=== PATIENT | female | born 1990 | race African-American/Black ===

== ENCOUNTER 2017-12-17 04:21 | Inpatient (IN) | payer MEDICAID ==
[2017-12-17] MEDS ORDERED: OXYTOCIN 10 UNIT/ML VIAL IM ONE ×2 (04:40→05:20)
[2017-12-17] MEDS ORDERED: SODIUM CHLORIDE FLUSH 0.9% 10 ML SYRINGE ONE (04:57)
[2017-12-17] MEDS ORDERED: MAGNESIUM SULFATE IN WATER 20 GM/500 ML IV.SOLN IV ONE (05:00)
[2017-12-17] MEDS ORDERED: LACTATED RINGERS 1,000 ML IV ONE (05:00)
[2017-12-17] MEDS ORDERED: MAGNESIUM SULFATE 2 GRAM 4 GM/100 ML BAG IV ONE (05:06)
[2017-12-17 05:07] LABS: BASOPHILS # (AUTO) 0.1 10^3/uL (0.0-0.1); BASOPHILS % (AUTO) 0.7 %; EOSINOPHILS % (AUTO) 0.1 %; HGB - HEMOGLOBIN 9.9 g/dL (12.0-16.0); LYMPHOCYTES # (AUTO) 1.6 10^3/uL (1.5-3.5); LYMPHOCYTES % (AUTO) 16.6 %; MEAN CORPUSCULAR HEMOGLOBIN 26.4 pg (27.0-31.0); MEAN CORPUSCULAR HGB CONC 32.4 g/dL (32.0-36.0); MEAN CORPUSCULAR VOLUME 81.6 fL (81.0-99.0); MEAN PLATELET VOLUME 9.2 fL (7.9-10.8); MONOCYTES # (AUTO) 0.4 10^3/uL (0.0-1.0); MONOCYTES % (AUTO) 4.3 %; NEUTROPHILS # (AUTO) 7.3 10^3/uL (1.5-6.6); NEUTROPHILS % (AUTO) 78.3 %; PLT - PLATELET COUNT 197 10^3/uL (130-450); RED BLOOD COUNT 3.74 10^6/uL (4.20-5.40); RED CELL DISTRIBUTION WIDTH 13.7 % (12.0-15.0); WHITE BLOOD COUNT 9.4 x10^3/uL (4.8-10.8)
[2017-12-17 05:19] LABS: URIC ACID 5.4 mg/dL (2.6-7.2)
[2017-12-17] MEDS ORDERED: diphenhydrAMINE 25 MG CAPSULE PO PRN (05:38)
[2017-12-17] MEDS ORDERED: ONDANSETRON 4 MG/2 ML VIAL IVP PRN (05:38)
[2017-12-17] MEDS ORDERED: OXYTOCIN/SODIUM CHLORIDE 250 ML IV ONE ×2 (05:38→05:40)
[2017-12-17] MEDS ORDERED: WITCH HAZEL/GLYCERIN 1 EACH MED..PAD TOP PRN (05:40)
[2017-12-17] MEDS ORDERED: oxyCODONE 5 MG TABLET PO PRN (05:40)
[2017-12-17] MEDS ORDERED: HYDROCORTISONE/PRAMOXINE 10 GM PR PRN (05:40)
[2017-12-17] MEDS ORDERED: LACTATED RINGERS 1,000 ML IV SCH (06:00)
[2017-12-17] MEDS ORDERED: miSOPROStol 200 MCG TABLET PO ONE (06:00)
[2017-12-17] MEDS ORDERED: OXYTOCIN 10 UNIT/ML VIAL IV ONE (06:00)
--- NOTE | 2017-12-17 06:27 | DELIVERY NOTE ---
Delivery Note - Labor Labor: positive: Spontaneous - Delivery Method Delivery Method: positive: Spontaneous vaginal delivery - Presentation Presentation: positive: Vertex - Anesthetic Anesthetic Type: - Amniotic Fluid Description Amniotic Fluid Description: positive: Clear - Episiotomy Type Episiotomy Type: positive: None - Laceration Laceration: positive: 1st degree (1 mm no need for repare) - Delivery Outcome Delivery Outcome: positive: Livebirth - [place] sex: positive: Female - Cord Cord: positive: 3 vessels - Placenta Placenta: positive: Intact - Estimated Blood Loss Estimated Blood Loss (in cc): 400 - Delivery Comments (Free Text/Narrative) Delivery Comments (Free Text/Narrative): Pt precipitously delivered unattended in the parking lot of the hospital
--- NOTE | 2017-12-17 07:00 | HISTORY & PHYSICAL EXAMINATION ---
DATE OF SERVICE: 12/17/2017 Physician: El Patton MD PATIENT IDENTIFICATION: The patient is a 27-year-old G5, P4, AB1 female whose last menstrual period was roughly -27 March 2018. She has an EDC of 01 January via a 19- week ultrasound. This makes her 37.6 weeks. CHIEF COMPLAINT: Vaginal delivery. HISTORY OF PRESENT ILLNESS: The patient developed contractions at roughly 1:30 this morning. They were mild in nature. She did progress, they became stronger, and so she came to the hospital [facility] at [facility]. She had spontaneous rupture at roughly 4:15. Upon arriving in the parking lot, she delivered an at roughly 4:25. She has had minimal to no care. She had an ultrasound at 19 weeks, and she states she has had about 3 other visits. She does have a history of having preeclampsia with her last delivery. She now has been noticing mild headaches, but has not had any blood pressure monitoring. The patient denies any spots in front of her eyes at this particular point. Her laboratories are nonexistent. OB HISTORY: First childbirth 05/2010, female, 38 weeks, care at [place]. Second female, delivered in 11/2011 at 36 weeks. She had care once again at [place]. Third was delivered in 02/2016, male, delivered at 37.3 weeks. Infant's course was complicated with IUGR and abruption at time of delivery. She also had care for this one at [place]. She had preeclampsia noted. PAST MEDICAL HISTORY: Positive for seizures, which the last one was 1 year ago. PAST SURGICAL HISTORY: Tonsillectomy and adenoidectomy. CURRENT MEDICATIONS: vitamins. HABITS: The patient smokes 3 cigarettes per day. She states she does also do some heroin. She states that she smoked this 4 days ago, did methamphetamines about the same time; however, that she mainlined this, does do tetrahydrocannabinol periodically. SOCIAL HISTORY: The patient lives with the father and the baby's uncle. She lives in a safe environment at this particular time and food is not an issue. Father of the baby is involved. The patient's 3 previous infants are currently living with the grandmother in [place] and the patient does not have them at this time. FAMILY HISTORY: Negative for breast or ovarian cancer, but is positive for some hypertension. REVIEW OF SYSTEMS: Only positive for nausea. PHYSICAL EXAMINATION VITAL SIGNS: Blood pressures initially were in the 150s over 105s. They have settled down 140s over 105s, pulse has been 80. HEENT: Pupils are equal, round. Extraocular muscles are intact. Thyroid is not palpably enlarged. HEART: Regular rate and rhythm without murmurs. LUNGS: Lung ramirez are clear without rales or wheezes. BACK: No spinal or CVA tenderness noted. ABDOMEN: Shows a firm fundus at U +1. It is tender to palpation. This is appropriate considering she has just delivered. The remainder of the abdomen is soft. VULVA: There is a small 1 mm tear at the posterior vulva. This is minimal in nature and does not deserve a stitch. There are no other lacerations. EXTREMITIES: The left forearm shows multiple scratches on it, roughly 20 in number, these appear to be roughly 1-2 days old. There is no swelling in extremities; however , there is 3+ edema with 3 beats of clonus bilaterally. LABORATORY DATA CBC on admission shows a white count of 9.4, hemoglobin is 9.9, hematocrit is 39.6, platelets are 197. Chemistries: Uric acid is 5.4. AST is 4.2. LDH is 182. Her blood type, Rh as well as the rest of her labs are currently pending. ASSESSMENT AND PLAN 1. A 27-year-old G5, P4, female delivered at 37.6 weeks. 2. Preeclampsia probable. Because of the hypertension, because of the history of seizures also, and the hyperreflexia, it was felt that starting on magnesium sulfate would be the judicious thing to do at this time, will probably run for 24 hours, following which will probably discontinue. We will also engage Tray Setter. TD: 12/17/2017 06:22 YOSSI
[2017-12-17 07:32] LABS: PROTEIN/CREATININE RATIO,URINE 1.5 (<=0.2)
[2017-12-17] MEDS ORDERED: OXYTOCIN/SODIUM CHLORIDE 500 ML IV SCH (08:00)
[2017-12-17] MEDS: ACETAMINOPHEN 500 MG TABLET PO SCH ×3 (08:16→21:25)
[2017-12-17] MEDS: IBUPROFEN 800 MG TABLET PO SCH ×3 (08:16→20:12)
[2017-12-17] MEDS: DOCUSATE SODIUM 100 MG CAPSULE PO SCH ×2 (08:17→21:25)
--- NOTE | 2017-12-17 09:48 | PROVIDER PROGRESS NOTE ---
Subjective - Prog Note Date Prog Note Date: 12/17/17 (SENIOR SITE MANAGER AIR HAMMER STRIPPER) Prog Note Time: 09:35 - Subjective Subjective: SENIOR SITE MANAGER AIR HAMMER STRIPPER: S: 27 YO multiparous female delivered in hospital parking early this AM. Hx of multi-drug use, most recently 4 days ago (see H&P). Patient with elevated bp in 150s/100 range, started on IV Magnesium Sulfate, P/C ration 1.5 as well, other preeclamptic labs unremarkable. Hx of mild seizures of short duration since age 7, denies ever seeing a neurologist, last one 14 months ago. On no meds for seizures, does not know what she was on before episodically. CPS involved. SBAR from Dr. Patton this AM. Patient without complaints, resting in bed, had breakfast this AM. No h/a, visual changes. O: VSS/AF: bp 150/103 at 0745 CV RRR LCTAB ABD SNT, UX Firm, U-6 : Normal lochia Ms/NM: no clonus or hyperrefelxia A/P: # Day of Delivery s/p precipitous delivery in parking lot. # Hx polysubstance abuse: Tox Screen CPS involved # Hx seizure disorder, mild. Last one 14 months ago. Unknown meds for same. Non- complaint Will arrange for F/U visit in clinic in 1 week and outpatient referral. # Preeclampsia 24 hours of IV Magnesium Sulfate Repeat Labs tomorrow AM Objective - Vital Signs/Intake & Output Vital Signs: Vital Signs x48h Temp Pulse Resp BP Pulse Ox 12/17/17 09:00 100 18 148/108 H 100 12/17/17 08:30 96 20 150/104 H 100 12/17/17 08:15 83 18 153/104 H 98 12/17/17 08:00 75 18 149/106 H 99 12/17/17 07:45 83 18 150/103 H 98 12/17/17 07:30 78 18 154/104 H 98 12/17/17 07:15 86 18 155/105 H 100 12/17/17 07:00 88 157/105 H 99 12/17/17 06:45 88 18 157/105 H 98 12/17/17 06:30 36.2 C L 80 20 148/103 H 98 12/17/17 06:15 80 20 151/106 H 12/17/17 06:00 86 20 148/92 H 12/17/17 05:45 95 22 152/92 H 12/17/17 05:30 67 20 151/93 H 12/17/17 05:25 80 20 149/105 H 12/17/17 05:20 77 20 141/91 H 12/17/17 05:15 77 24 141/97 H 12/17/17 05:10 91 20 136/89 H 12/17/17 05:05 83 20 141/90 H 12/17/17 05:00 86 24 141/88 H 12/17/17 04:55 76 24 150/95 H 12/17/17 04:50 36.4 C L 77 24 154/99 H 97 12/17/17 04:45 77 26 H 157/108 H 100 12/17/17 04:40 74 26 H 139/89 H 100 12/17/17 04:35 73 30 H 161/102 H 100 Intake & Output: Intake & Output 12/14/17 12/15/17 12/16/17 12/17/17 23:59 23:59 23:59 23:59 Intake Total 100 Balance 100 - Lab Results Fish Bones: 12/17/17 04:55 Other Labs: Lab Results x24hrs 12/17/17 12/17/17 12/17/17 Range/Units 06:45 04:55 04:55 WBC (4.8-10.8) x10^3/uL RBC (4.20-5.40) 10^6/uL Hgb (12.0-16.0) g/dL Hct (37.0-47.0) % MCV (81.0-99.0) fL MCH (27.0-31.0) pg MCHC (32.0-36.0) g/dL RDW (12.0-15.0) % Plt Count (130-450) 10^3/uL MPV (7.9-10.8) fL Neut # (Auto) (1.5-6.6) 10^3/uL Lymph # (Auto) (1.5-3.5) 10^3/uL [place] # (Auto) (0.0-1.0) 10^3/uL Eos # (Auto) (0.0-0.7) 10^3/uL Baso # (Auto) (0.0-0.1) 10^3/uL Absolute Nucleated RBC x10^3/uL Nucleated RBC % /100WBC Uric Acid 5.4 (2.6-7.2) mg/dL AST 42 (10-42) IU/L Lactate Dehydrogenase (91-225) IU/L Urine Creatinine 129.0 mg/dL Ur Total Protein Timed 193 mg/dL Protein/Creatinin Ratio 1.5 H (<=0.2) Blood Type O POSITIVE Antibody Screen NEGATIVE 12/17/17 12/17/17 Range/Units 04:55 04:55 WBC 9.4 (4.8-10.8) x10^3/uL RBC 3.74 L (4.20-5.40) 10^6/uL Hgb 9.9 L (12.0-16.0) g/dL Hct 30.6 L (37.0-47.0) % MCV 81.6 (81.0-99.0) fL MCH 26.4 L (27.0-31.0) pg MCHC 32.4 (32.0-36.0) g/dL RDW 13.7 (12.0-15.0) % Plt Count 197 (130-450) 10^3/uL MPV 9.2 (7.9-10.8) fL Neut # (Auto) 7.3 H (1.5-6.6) 10^3/uL Lymph # (Auto) 1.6 (1.5-3.5) 10^3/uL [place] # (Auto) 0.4 (0.0-1.0) 10^3/uL Eos # (Auto) 0.0 (0.0-0.7) 10^3/uL Baso # (Auto) 0.1 (0.0-0.1) 10^3/uL Absolute Nucleated RBC 0.01 x10^3/uL Nucleated RBC % 0.1 /100WBC Uric Acid (2.6-7.2) mg/dL AST (10-42) IU/L Lactate Dehydrogenase 182 (91-225) IU/L Urine Creatinine mg/dL Ur Total Protein Timed mg/dL Protein/Creatinin Ratio (<=0.2) Blood Type Antibody Screen
[2017-12-17 10:57] LABS: MUDS CUTOFF CONCENTRATIONS CUTOFF CONC BELOW:
[2017-12-17 11:44] LABS: AMPHETAMINE SCREEN,URINE POSITIVE (NEGATIVE); BENZODIAZEPINES SCREEN, URINE NEGATIVE (NEGATIVE); COCAINE SCREEN URINE NEGATIVE (NEGATIVE); METHADONE SCREEN, URINE NEGATIVE (NEGATIVE); METHAMPHETAMINES SCREEN, URINE NEGATIVE (NEGATIVE); OPIATE SCREEN, URINE NEGATIVE (NEGATIVE); OXYCODONE SCREEN, URINE NEGATIVE (NEGATIVE); PROPOXYPHENE SCREEN, URINE NEGATIVE (NEGATIVE); TRICYCLIC ANTIDEPRESSANT,URINE NEGATIVE (NEGATIVE)
[2017-12-17] MEDS ORDERED: hydrALAZINE INJ 20 MG/ML VIAL IVP PRN (12:23)
[2017-12-17] MEDS: MAGNESIUM SULFATE IN WATER 20 GM/500 ML IV.SOLN IV SCH ×2 (15:47→21:03)
--- NOTE | 2017-12-17 17:58 | PROVIDER PROGRESS NOTE ---
Subjective - Prog Note Date Prog Note Date: 12/17/17 Prog Note Time: 17:56 - Subjective Pt reports feeling: Improved (Pt feels fatgue from Magnesium Sulfate. uterus feels beter. Baby on hold From CPS) Objective - Vital Signs/Intake & Output Reviewed Vital Signs: Yes Vital Signs: Vital Signs x48h Temp Pulse Resp BP Pulse Ox 12/17/17 16:48 83 18 147/100 H 12/17/17 16:30 90 16 143/101 H 12/17/17 15:30 36.9 C 90 18 144/109 H 12/17/17 15:23 79 18 134/93 H 12/17/17 15:00 88 18 141/97 H 12/17/17 14:30 97 16 151/105 H 12/17/17 14:00 87 18 133/87 H 12/17/17 13:30 83 18 140/94 H 12/17/17 12:30 82 18 153/108 H 99 12/17/17 12:00 89 16 152/103 H 99 12/17/17 11:30 84 18 147/105 H 99 12/17/17 11:00 90 18 148/104 H 98 12/17/17 10:30 88 18 144/103 H 99 12/17/17 10:25 75 18 149/106 H 98 12/17/17 10:00 94 18 149/112 H 99 Intake & Output: Intake & Output 12/14/17 12/15/17 12/16/17 12/17/17 23:59 23:59 23:59 23:59 Intake Total 1790.833 Output Total 2300 Balance -509.167 - Objective General Appearance: positive: No acute distress, Alert Reflexes: Knee (R): 2+ (one beat Clonus), Knee (L): 2+ (one beat Clonus) - Lab Results Fish Bones: 12/17/17 04:55 Other Labs: Lab Results x24hrs 12/17/17 12/17/17 12/17/17 Range/Units 08:47 06:45 06:45 WBC (4.8-10.8) x10^3/uL RBC (4.20-5.40) 10^6/uL Hgb (12.0-16.0) g/dL Hct (37.0-47.0) % MCV (81.0-99.0) fL MCH (27.0-31.0) pg MCHC (32.0-36.0) g/dL RDW (12.0-15.0) % Plt Count (130-450) 10^3/uL MPV (7.9-10.8) fL Neut # (Auto) (1.5-6.6) 10^3/uL Lymph # (Auto) (1.5-3.5) 10^3/uL [place] # (Auto) (0.0-1.0) 10^3/uL Eos # (Auto) (0.0-0.7) 10^3/uL Baso # (Auto) (0.0-0.1) 10^3/uL Absolute Nucleated RBC x10^3/uL Nucleated RBC % /100WBC Uric Acid (2.6-7.2) mg/dL AST (10-42) IU/L Lactate Dehydrogenase (91-225) IU/L Urine Creatinine 129.0 mg/dL Ur Total Protein Timed 193 mg/dL Protein/Creatinin Ratio 1.5 H (<=0.2) Urine Opiates Screen NEGATIVE (NEGATIVE) Ur Oxycodone Screen NEGATIVE (NEGATIVE) Urine Methadone Screen NEGATIVE (NEGATIVE) Ur Propoxyphene Screen NEGATIVE (NEGATIVE) Ur Barbiturates Screen NEGATIVE (NEGATIVE) Ur Tricyclics Screen NEGATIVE (NEGATIVE) Ur Phencyclidine Scrn NEGATIVE (NEGATIVE) Ur Amphetamine Screen POSITIVE H (NEGATIVE) U Methamphetamines Scrn NEGATIVE (NEGATIVE) U Benzodiazepines Scrn NEGATIVE (NEGATIVE) Urine Cocaine Screen NEGATIVE (NEGATIVE) U Cannabinoids Screen NEGATIVE (NEGATIVE) Rubella IgG Antibody 34 (POS) IU/mL Blood Type Antibody Screen 12/17/17 12/17/17 12/17/17 Range/Units 04:55 04:55 04:55 WBC 9.4 (4.8-10.8) x10^3/uL RBC 3.74 L (4.20-5.40) 10^6/uL Hgb 9.9 L (12.0-16.0) g/dL Hct 30.6 L (37.0-47.0) % MCV 81.6 (81.0-99.0) fL MCH 26.4 L (27.0-31.0) pg MCHC 32.4 (32.0-36.0) g/dL RDW 13.7 (12.0-15.0) % Plt Count 197 (130-450) 10^3/uL MPV 9.2 (7.9-10.8) fL Neut # (Auto) 7.3 H (1.5-6.6) 10^3/uL Lymph # (Auto) 1.6 (1.5-3.5) 10^3/uL [place] # (Auto) 0.4 (0.0-1.0) 10^3/uL Eos # (Auto) 0.0 (0.0-0.7) 10^3/uL Baso # (Auto) 0.1 (0.0-0.1) 10^3/uL Absolute Nucleated RBC 0.01 x10^3/uL Nucleated RBC % 0.1 /100WBC Uric Acid 5.4 (2.6-7.2) mg/dL AST 42 (10-42) IU/L Lactate Dehydrogenase (91-225) IU/L Urine Creatinine mg/dL Ur Total Protein Timed mg/dL Protein/Creatinin Ratio (<=0.2) Urine Opiates Screen (NEGATIVE) Ur Oxycodone Screen (NEGATIVE) Urine Methadone Screen (NEGATIVE) Ur Propoxyphene Screen (NEGATIVE) Ur Barbiturates Screen (NEGATIVE) Ur Tricyclics Screen (NEGATIVE) Ur Phencyclidine Scrn (NEGATIVE) Ur Amphetamine Screen (NEGATIVE) U Methamphetamines Scrn (NEGATIVE) U Benzodiazepines Scrn (NEGATIVE) Urine Cocaine Screen (NEGATIVE) U Cannabinoids Screen (NEGATIVE) Rubella IgG Antibody IU/mL Blood Type O POSITIVE Antibody Screen NEGATIVE 12/17/17 Range/Units 04:55 WBC (4.8-10.8) x10^3/uL RBC (4.20-5.40) 10^6/uL Hgb (12.0-16.0) g/dL Hct (37.0-47.0) % MCV (81.0-99.0) fL MCH (27.0-31.0) pg MCHC (32.0-36.0) g/dL RDW (12.0-15.0) % Plt Count (130-450) 10^3/uL MPV (7.9-10.8) fL Neut # (Auto) (1.5-6.6) 10^3/uL Lymph # (Auto) (1.5-3.5) 10^3/uL [place] # (Auto) (0.0-1.0) 10^3/uL Eos # (Auto) (0.0-0.7) 10^3/uL Baso # (Auto) (0.0-0.1) 10^3/uL Absolute Nucleated RBC x10^3/uL Nucleated RBC % /100WBC Uric Acid (2.6-7.2) mg/dL AST (10-42) IU/L Lactate Dehydrogenase 182 (91-225) IU/L Urine Creatinine mg/dL Ur Total Protein Timed mg/dL Protein/Creatinin Ratio (<=0.2) Urine Opiates Screen (NEGATIVE) Ur Oxycodone Screen (NEGATIVE) Urine Methadone Screen (NEGATIVE) Ur Propoxyphene Screen (NEGATIVE) Ur Barbiturates Screen (NEGATIVE) Ur Tricyclics Screen (NEGATIVE) Ur Phencyclidine Scrn (NEGATIVE) Ur Amphetamine Screen (NEGATIVE) U Methamphetamines Scrn (NEGATIVE) U Benzodiazepines Scrn (NEGATIVE) Urine Cocaine Screen (NEGATIVE) U Cannabinoids Screen (NEGATIVE) Rubella IgG Antibody IU/mL Blood Type Antibody Screen Assessment/Plan - Problem List (1) (spontaneous vaginal delivery) Impression: Pt ie responding well from post state. Baby on CPS hold (2) Pre-eclampsia Impression: Pt has pre Eclampsia with Protein uria. BP diastolic are elevated above 100 will start Labetolol
[2017-12-17] MEDS ORDERED: LABETALOL 100 MG TABLET PO SCH (19:00)
[2017-12-17] MEDS: LACTATED RINGERS 1,000 ML IV SCH ×2 (21:01→21:03)
[2017-12-17] MEDS: MAGNESIUM SULFATE 2 GRAM 2 GM/50 ML BAG IV SCH ×2 (21:01→21:02)
[2017-12-18] MEDS: MAGNESIUM SULFATE IN WATER 20 GM/500 ML IV.SOLN IV SCH (01:24)
[2017-12-18] MEDS: LACTATED RINGERS 1,000 ML IV SCH ×3 (04:09→23:03)
[2017-12-18 05:30] LABS: BASOPHILS # (AUTO) 0.1 10^3/uL (0.0-0.1); BASOPHILS % (AUTO) 0.7 %; EOSINOPHILS # (AUTO) 0.2 10^3/uL (0.0-0.7); EOSINOPHILS % (AUTO) 2.1 %; HGB - HEMOGLOBIN 9.4 g/dL (12.0-16.0); LYMPHOCYTES # (AUTO) 2.4 10^3/uL (1.5-3.5); LYMPHOCYTES % (AUTO) 30.9 %; MEAN CORPUSCULAR HEMOGLOBIN 27.8 pg (27.0-31.0); MEAN CORPUSCULAR HGB CONC 33.6 g/dL (32.0-36.0); MEAN CORPUSCULAR VOLUME 82.8 fL (81.0-99.0); MEAN PLATELET VOLUME 8.8 fL (7.9-10.8); MONOCYTES # (AUTO) 0.6 10^3/uL (0.0-1.0); MONOCYTES % (AUTO) 7.5 %; NEUTROPHILS # (AUTO) 4.6 10^3/uL (1.5-6.6); NEUTROPHILS % (AUTO) 58.8 %; PLT - PLATELET COUNT 180 10^3/uL (130-450); RED BLOOD COUNT 3.38 10^6/uL (4.20-5.40); RED CELL DISTRIBUTION WIDTH 14.2 % (12.0-15.0); WHITE BLOOD COUNT 7.7 x10^3/uL (4.8-10.8)
[2017-12-18 05:39] LABS: URIC ACID 5.3 mg/dL (2.6-7.2)
[2017-12-18] MEDS: IBUPROFEN 800 MG TABLET PO SCH ×4 (05:58→23:02)
--- NOTE | 2017-12-18 08:09 | PROVIDER PROGRESS NOTE ---
Subjective - Prog Note Date Prog Note Date: 12/18/17 Prog Note Time: 08:06 - Subjective Pt reports feeling: Improved (Pt notes Pain -08/23. states that she has good pain control. bleeding scant. Would like to go out for a breath of fresh air.) Objective - Vital Signs/Intake & Output Reviewed Vital Signs: Yes Vital Signs: Vital Signs x48h Pulse BP 12/18/17 06:30 118/81 H 12/18/17 04:30 64 118/79 12/18/17 04:00 75 138/94 H 12/18/17 03:30 80 127/92 H Intake & Output: Intake & Output 12/15/17 12/16/17 12/17/17 12/18/17 23:59 23:59 23:59 23:59 Intake Total 3040.833 580.833 Output Total 3375 375 Balance -334.167 205.833 - Objective General Appearance: positive: No acute distress, Alert Respiratory: positive: Chest non-tender, No respiratory distress, Breath sounds nml Cardiovascular: positive: Regular rate & rhythm, No murmur, No gallop Abdomen: positive: Non-tender, Nml bowel sounds, No distention, Mass (U-3 cm) Neurologic/Psychiatric: positive: Oriented x3 Reflexes: Knee (R): 1+ (single beat clonus), Knee (L): 1+ (single beat clonus) - Lab Results Fish Bones: 12/18/17 05:18 Other Labs: Lab Results x24hrs 12/18/17 12/18/17 12/18/17 Range/Units 05:18 05:18 05:18 WBC 7.7 (4.8-10.8) x10^3/uL RBC 3.38 L (4.20-5.40) 10^6/uL Hgb 9.4 L (12.0-16.0) g/dL Hct 28.0 L (37.0-47.0) % MCV 82.8 (81.0-99.0) fL MCH 27.8 (27.0-31.0) pg MCHC 33.6 (32.0-36.0) g/dL RDW 14.2 (12.0-15.0) % Plt Count 180 (130-450) 10^3/uL MPV 8.8 (7.9-10.8) fL Neut # (Auto) 4.6 (1.5-6.6) 10^3/uL Lymph # (Auto) 2.4 (1.5-3.5) 10^3/uL [place] # (Auto) 0.6 (0.0-1.0) 10^3/uL Eos # (Auto) 0.2 (0.0-0.7) 10^3/uL Baso # (Auto) 0.1 (0.0-0.1) 10^3/uL Absolute Nucleated RBC 0.01 x10^3/uL Nucleated RBC % 0.1 /100WBC Uric Acid 5.3 (2.6-7.2) mg/dL AST 40 (10-42) IU/L Lactate Dehydrogenase 243 H (91-225) IU/L Urine Opiates Screen (NEGATIVE) Ur Oxycodone Screen (NEGATIVE) Urine Methadone Screen (NEGATIVE) Ur Propoxyphene Screen (NEGATIVE) Ur Barbiturates Screen (NEGATIVE) Ur Tricyclics Screen (NEGATIVE) Ur Phencyclidine Scrn (NEGATIVE) Ur Amphetamine Screen (NEGATIVE) U Methamphetamines Scrn (NEGATIVE) U Benzodiazepines Scrn (NEGATIVE) Urine Cocaine Screen (NEGATIVE) U Cannabinoids Screen (NEGATIVE) Rubella IgG Antibody IU/mL 12/17/17 12/17/17 Range/Units 08:47 06:45 WBC (4.8-10.8) x10^3/uL RBC (4.20-5.40) 10^6/uL Hgb (12.0-16.0) g/dL Hct (37.0-47.0) % MCV (81.0-99.0) fL MCH (27.0-31.0) pg MCHC (32.0-36.0) g/dL RDW (12.0-15.0) % Plt Count (130-450) 10^3/uL MPV (7.9-10.8) fL Neut # (Auto) (1.5-6.6) 10^3/uL Lymph # (Auto) (1.5-3.5) 10^3/uL [place] # (Auto) (0.0-1.0) 10^3/uL Eos # (Auto) (0.0-0.7) 10^3/uL Baso # (Auto) (0.0-0.1) 10^3/uL Absolute Nucleated RBC x10^3/uL Nucleated RBC % /100WBC Uric Acid (2.6-7.2) mg/dL AST (10-42) IU/L Lactate Dehydrogenase (91-225) IU/L Urine Opiates Screen NEGATIVE (NEGATIVE) Ur Oxycodone Screen NEGATIVE (NEGATIVE) Urine Methadone Screen NEGATIVE (NEGATIVE) Ur Propoxyphene Screen NEGATIVE (NEGATIVE) Ur Barbiturates Screen NEGATIVE (NEGATIVE) Ur Tricyclics Screen NEGATIVE (NEGATIVE) Ur Phencyclidine Scrn NEGATIVE (NEGATIVE) Ur Amphetamine Screen POSITIVE H (NEGATIVE) U Methamphetamines Scrn NEGATIVE (NEGATIVE) U Benzodiazepines Scrn NEGATIVE (NEGATIVE) Urine Cocaine Screen NEGATIVE (NEGATIVE) U Cannabinoids Screen NEGATIVE (NEGATIVE) Rubella IgG Antibody 34 (POS) IU/mL Assessment/Plan - Problem List (1) (spontaneous vaginal delivery) Impression: recovering well. (2) Pre-eclampsia Impression: Magnesium stoped this AM. BP down when recumbent. Labetolol working will increase to BID
[2017-12-18] MEDS ORDERED: NICOTINE 7 MG PATCH TOP SCH (09:00)
[2017-12-18] MEDS: LABETALOL 100 MG TABLET PO SCH ×2 (09:14→23:09)
[2017-12-18] MEDS: ACETAMINOPHEN 500 MG TABLET PO SCH ×3 (09:14→23:02)
[2017-12-18] MEDS: DOCUSATE SODIUM 100 MG CAPSULE PO SCH ×2 (09:14→23:09)
[2017-12-18 13:36] LABS: HEPATITIS B SURFACE ANTIGEN NON-REACTIVE (NON-REACTIVE); HEPATITIS C ANTIBODY REACTIVE (NON-REACTIVE)
[2017-12-19] MEDS: DOCUSATE SODIUM 100 MG CAPSULE PO SCH (09:21)
[2017-12-19] MEDS: LABETALOL 100 MG TABLET PO SCH (09:21)
--- NOTE | 2017-12-19 11:26 | Discharge Plan ---
Discharge Plan Disposition: Home, Self Care Prescriptions: Ibuprofen [Motrin] 800 mg PO Q8H PRN #30 tablet NS PRN Reason: Pain Labetalol [Trandate] 100 mg PO BID 30 Days #60 tablet Diet: Regular Activity Restrictions: no sex or heavy lifting for 6 weeks Shower Restrictions: No Driving Restrictions: Yes (no driving x 2 weeks) Weight Bearing: Full Weight Additional Instructions or Follow Up instructions: FOLLOW UP IN [facility] IN 2 WEEKS No Smoking: If you smoke, Please STOP! Call for help. Follow-up with: El Patton MD [Provider Admit Priv/Credential] -
--- NOTE | 2017-12-19 11:54 | DISCHARGE SUMMARY ---
"Discharge Summary Admit Date: 12/17/17 Discharge Date: 12/19/17 Discharging Provider: ELFEGO Condition at Discharge: Good Discharge Facility Name: [facility] - DIAGNOSES Admission Diagnoses: SPONTANEOUS VAGINAL DELIVERY PREECLAMPSIA Discharge Diagnoses with Status of Each Condition: SPONTANEOUS VAGINAL DELIVERY PREECLAMPSIA - HPI History of Present Illness: 27 year-old A1 with an EDC of 01/01/18 based on a 19 week US, making her 37.6 weeks at time of admission, with SROM at approx. 0415 hours subsequently delivered precipitously in [facility] Parking lot at approx. 0425 hours. She has had minimal to no care. She had an ultrasound at 19 weeks, and states she had 3 other OB visits. She has an OB history of preeclampsia with her last delivery. Upon admission noted to have preeclampsia range bp in 150/ 100 range, placed on IV Magnesium Sulfate prophylaxis. P/C ratio 1.5 on admission, bloodwork unremarkable. Social hx notable for polysubstance abuse. Hx of heroin and tetrahydrocannabinol periodcally. States smokes 3 cigarettes per day. Admits to methamphetamine use about 4 days prior to admission. Urine drug screen + for amphetamines on admission. Patient lives with the father and the baby's uncle in a safe environment. - CONSULTS | PROCEDURES Consultations: CPS Procedures: IV MAGNESIUM SULFATE PROPHYLAXIS - HOSPITAL COURSE Hospital Course: The patient was placed on IV Magnesium Sulfate prophylaxis for 24 hours for preeclampsia. Her diastolic bp yuridia to as high as 112 and she was started on oral Labetolol 100 mg bid to which she responded well, with bp in normal range on labetolol. Hepatitis C screen came back +, RNA testing pending at the time of discharge. She is RH positive, Rubella immune. The remainder of her course was unremarkable. CPS is meeting regarding the the status of the baby, who will remain administratively in the hospital after mother is discharged. She is being discharged home on oral motrin and a 30 day supply of Labetolol 100 mg bid with a follow up appointment with delivery physician Pooja in 2 weeks. Discussed contraception with patient prior to discharge to include LARC and she is undecided at this time about contraception. Not interested in sterilization at this time. Will F/U in OB clinic with Dr. Patton in 2 weeks. - ALLERGIES Allergies/Adverse Reactions: Allergies Allergy/AdvReac Type Severity Reaction Status Date / Time No Known Drug Allergies Allergy Verified 12/17/17 21:00 - MEDICATIONS Home Medications: Ambulatory Orders Medication Instructions Recorded Confirmed Ibuprofen [Motrin] 800 mg PO Q8H PRN #30 tablet NS 12/19/17 Labetalol [Trandate] 100 mg PO BID 30 Days #60 tablet 12/19/17 - PHYSICAL EXAM AT DISCHARGE Physical Exam Other/Comments: S: NAD O: VSS/AF ABD SNT, no guarding or rebound Ux firm U-6, NT : normal lochia MS/NM: N/C - LABS Result Diagrams: 12/18/17 05:18 - FOLLOW UP Follow Up: Patient to see Dr. Patton in [facility]. Appointment will be made for the patient. - TIME SPENT Time Spent in Discharge (Minutes): 45"
[2017-12-19 14:37] LABS: HIV AG/AB 4TH GEN NON-REACTIVE (NON-REACTIVE)
[2017-12-19 15:51] VITALS: BP 113/65
[2017-12-20 13:36] LABS: HCV RNA QNT 6.52 Log IU/mL (NOT DETECTED); HCV RNA QUANT RT PCR 3340000 IU/mL (NOT DETECTED)
== END 2017-12-19 14:30 | disposition home or self-care (01) | DRG 776 ==
LOC: WFO 04:21 → FBP 04:22
PROVIDERS: ADMIT Obstetrics & Gynecology; ATTEND Obstetrics & Gynecology
DX: O14.95 Unspecified pre-eclampsia, complicating the puerperium (principal); O70.0 First degree perineal laceration during delivery; O99.325 Drug use complicating the puerperium; F19.10 Other psychoactive substance abuse, uncomplicated; O99.335 Smoking (tobacco) complicating the puerperium; F17.210 Nicotine dependence, cigarettes, uncomplicated; Z60.9 Problem related to social environment, unspecified; Z86.69 Personal history of other diseases of the nervous system and sense organs; Z91.14 Patient's other noncompliance with medication regimen
CPT/HCPCS: 36415; 80306; 82570; 83615; 84156; 84450; 84550; 85025; 86762; 86780; 86803; 86850; 86900; 86901; 87340; 87389; 87491; 87591; 88307

== ENCOUNTER 2018-09-28 02:17 | Outpatient (CLI) | payer MEDICAID ==
[2018-09-28] MEDS ORDERED: SODIUM CHLORIDE FLUSH 0.9% 10 ML SYRINGE ONE (04:27)
[2018-09-28 04:30] LABS: BASOPHILS # (AUTO) 0.1 10^3/uL (0.0-0.1); BASOPHILS % (AUTO) 0.6 %; EOSINOPHILS # (AUTO) 0.2 10^3/uL (0.0-0.7); EOSINOPHILS % (AUTO) 2.1 %; HGB - HEMOGLOBIN 11.1 g/dL (12.0-16.0); LYMPHOCYTES # (AUTO) 1.8 10^3/uL (1.5-3.5); LYMPHOCYTES % (AUTO) 19.8 %; MEAN CORPUSCULAR HEMOGLOBIN 28.8 pg (27.0-31.0); MEAN CORPUSCULAR VOLUME 84.8 fL (81.0-99.0); MONOCYTES # (AUTO) 0.6 10^3/uL (0.0-1.0); MONOCYTES % (AUTO) 6.4 %; NEUTROPHILS # (AUTO) 6.6 10^3/uL (1.5-6.6); NEUTROPHILS % (AUTO) 71.1 %; PLT - PLATELET COUNT 176 10^3/uL (130-450); RED BLOOD COUNT 3.86 10^6/uL (4.20-5.40); RED CELL DISTRIBUTION WIDTH 15.3 % (12.0-15.0); WHITE BLOOD COUNT 9.2 x10^3/uL (4.8-10.8)
[2018-09-28 04:40] LABS: ALBUMIN 2.8 g/dL (3.2-5.5); ALBUMIN/GLOBULIN RATIO 0.8 (1.0-2.2); BILIRUBIN,TOTAL 0.7 mg/dL (0.2-1.0); CALCIUM 8.7 mg/dL (8.5-10.3); CREATININE 0.7 mg/dL (0.4-1.0); TOTAL PROTEIN 6.5 g/dL (6.7-8.2)
[2018-09-28 05:35] LABS: MUDS CUTOFF CONCENTRATIONS CUTOFF CONC BELOW:
[2018-09-28 05:37] LABS: BILIRUBIN,URINE NEGATIVE (NEGATIVE); GLUCOSE, URINE (UA) NEGATIVE (NEGATIVE); KETONES,URINE (UA) NEGATIVE (NEGATIVE); LEUKOCYTE ESTERASE, URINE NEGATIVE (NEGATIVE); NITRITE,URINE NEGATIVE (NEGATIVE); OCCULT BLOOD,URINE MODERATE (NEGATIVE); PROTEIN,URINE 30 mg/dL (NEGATIVE); UROBILINOGEN,URINE 0.2 (NORMAL) E.U./dL (NORMAL)
--- NOTE | 2018-09-28 05:40 | Ultrasound Report ---
Reason: No care. LMP 03/20/2018.Check dates viab Procedure Date: 09/28/2018 Accession Number: [id number] / [id number] Procedure: US - OB Limited CPT Code: FULL RESULT: EXAM: LIMITED OBSTETRICAL ULTRASOUND EXAM DATE: 09/28/2018 04:23 AM. CLINICAL HISTORY: No care. Vaginal bleeding. Check dates and viability. COMPARISON: None. TECHNIQUE: Real-time sonographic evaluation of the fetus performed by the rope cleaner. Multiple medical detail representative static images were saved for review. DATING: EGA 27 weeks 3 days with LISA 12/25/2018 based on LMP. EGA 23 weeks 4 days with LISA 01/21/2019 based on the current ultrasound. GENERAL EVALUATION Syed . Cardiac activity: 150 bpm. movement: Visualized. Presentation: Breech. Placenta: Anterior position. No evidence for previa. Amniotic fluid: Subjectively normal. BIOMETRY Bi-Parietal Diameter (BPD): 5.8 cm, 23 weeks 4 days Head Circumference (HC): 21.7 cm, 23 weeks 5 days Abdominal Circumference (AC): 18.5 cm, 23 weeks 2 days Femur Length (FL): 4.1 cm, 23 weeks 1 day Estimated Weight: 586 g, 6.2 percentile for 27 weeks 3 days. MATERNAL STRUCTURES Uterus: Unremarkable. Cervix: Long and closed. Transabdominal length 3.3 cm. Right ovary/adnexa: Ovary not seen due to bowel gas and gestational age. Left ovary/adnexa: Ovary not seen due to bowel gas and gestational age. Free fluid: None. IMPRESSION: 1. Syed live intrauterine with gestational age 23 weeks 4 days based on current US which is discordant with clinical dates. 2. Otherwise no significant abnormality seen. RADIA
[2018-09-28 05:41] LABS: CLARITY,URINE CLEAR (CLEAR)
[2018-09-28 05:44] LABS: BACTERIA,URINE Rare /HPF (None Seen); MUCUS,URINE Few Strands; SQUAMOUS EPITHELIAL CELL,UR MOD Squamous (<= Few)
[2018-09-28 05:46] LABS: CREATININE,URINE 97.4 mg/dL; PROTEIN/CREATININE RATIO,URINE 0.5 (<=0.2)
[2018-09-28 05:48] LABS: AMPHETAMINE SCREEN,URINE POSITIVE (NEGATIVE); BENZODIAZEPINES SCREEN, URINE NEGATIVE (NEGATIVE); COCAINE SCREEN URINE NEGATIVE (NEGATIVE); METHADONE SCREEN, URINE NEGATIVE (NEGATIVE); METHAMPHETAMINES SCREEN, URINE NEGATIVE (NEGATIVE); OPIATE SCREEN, URINE NEGATIVE (NEGATIVE); OXYCODONE SCREEN, URINE NEGATIVE (NEGATIVE); PROPOXYPHENE SCREEN, URINE NEGATIVE (NEGATIVE); TRICYCLIC ANTIDEPRESSANT,URINE NEGATIVE (NEGATIVE)
[2018-09-28 05:59] VITALS: BP 141/96
[2018-09-29 13:46] LABS: HEPATITIS B SURFACE ANTIGEN NON-REACTIVE (NON-REACTIVE)
[2018-09-29 16:13] LABS: HIV AG/AB 4TH GEN NON-REACTIVE (NON-REACTIVE)
[2018-10-01 16:06] LABS: VARICELLA ZOSTER VIRUS IGM 0.82
[2018-10-01 20:56] LABS: HEPATITIS C VIRAL RNA GENOTYPE 1a
== END 2018-09-28 06:30 | disposition home or self-care (01) ==
LOC: WFO 02:17 → FBP 02:19 → WFO 06:30
PROVIDERS: ATTEND Obstetrics & Gynecology
DX: O46.92 Antepartum hemorrhage, unspecified, second trimester (principal); Z3A.23 23 weeks gestation of pregnancy; O09.32 Supervision of pregnancy with insufficient antenatal care, second trimester
CPT/HCPCS: 36415; 76815; 80053; 80306; 81001; 81003; 82570; 84156; 85025; 86762; 86780; 86787; 86900; 86901; 87086; 87210; 87340; 87389; 87491; 87522; 87591; 87902; 99214

== ENCOUNTER 2018-09-28 10:31 | Outpatient (CLI) | payer MEDICAID ==
--- NOTE | 2018-09-28 17:46 | Ultrasound Report ---
Reason: SUPERVISION OF HIGH RISK , UNSP, SECOND T Procedure Date: 09/28/2018 Accession Number: [id number] / [id number] Procedure: US - OB Detailed Eval CPT Code: FULL RESULT: EXAM: COMPLETE OBSTETRICAL ULTRASOUND. EXAM DATE: 09/28/2018 11:13 AM. CLINICAL HISTORY: anatomic survey. COMPARISON: OB LIMITED 09/28/2018 4:23 AM. TECHNIQUE: Real-time sonographic evaluation of the fetus performed by the service restorer emergency. Multiple sales representative groceries static images were saved for review. DATING: EGA 27 weeks 3 days with LISA 12/25/2018 based on uncertain LMP. EGA 23 weeks 4 days with LISA 01/21/2019 based on ultrasound from earlier today. EGA 24 weeks 2 days with LISA 01/15/2019 based on the current ultrasound. GENERAL EVALUATION Syed . Cardiac activity: 148 bpm. movement: Visualized. Presentation: Cephalic. Placenta: Anterior position. No evidence for previa. Umbilical cord: 3 vessel cord. Central placental cord origin. Nuchal cord is present. Amniotic fluid: Subjectively normal; amniotic fluid index 11.7 cm. MVP 3.45 cm. BIOMETRY Bi-Parietal Diameter (BPD): 6.0 cm, 24 weeks 3 days. Head Circumference (HC): 22.5 cm, 24 weeks 3 days. Abdominal Circumference (AC): 20.1 cm, 24 weeks 5 days. Femur Length (FL): 4.4 cm, 24 weeks 2 days Estimated Weight: 706 g, less than the third percentile for 27 weeks 3 days (using uncertain LMP); using estimated gestational age 23 weeks 4 days from first ultrasound(performed earlier), estimated weight would be at the 87th percentile. ANATOMY The intracranial structures, face/nose/lips, spine, 4 chamber heart and outflow tracts, stomach, abdominal wall and cord insertion, diaphragm, kidneys, bladder, and extremities were visualized and demonstrate no abnormality. Limited visualization of the profile/nasal bone due to positioning. MATERNAL STRUCTURES Uterus: Unremarkable. Cervix: Long and closed. Transabdominal length 4 cm. Right ovary/adnexa: Unremarkable. Left ovary/adnexa: Unremarkable. Free fluid: None. IMPRESSION: 1. Syed live intrauterine with gestational age 23 weeks 4 days based on first ultrasound (performed earlier today), given uncertain dates. 2. Estimated weight is within expected limits for assigned dating based on US performed earlier today. 3. Normal anatomic survey. No anatomic abnormalities are detected at this time. 4. Limited evaluation of the profile and nasal bones. Recommend repeat imaging in 2-3 weeks to reassess and complete survey. 5. Nuchal cord is noted; this can also be reassessed at follow-up. RADIA
== END 2018-09-28 10:32 | disposition home or self-care (01) ==
LOC: DI 10:31
PROVIDERS: ATTEND Nurse Practitioner Obstetrics & Gynecology
DX: O09.92 Supervision of high risk pregnancy, unspecified, second trimester (principal)
CPT/HCPCS: 76811

== ENCOUNTER 2018-09-28 12:35 | Outpatient (CLI) | payer MEDICAID ==
[2018-09-28 12:50] VITALS: BP 136/99
[2018-09-28] MEDS ORDERED: cefTRIAXone 250 MG VIAL IM ONE (12:51)
[2018-09-28] MEDS ORDERED: LIDOCAINE 1% 2 ML VIAL SUBQ ONE (12:51)
[2018-09-28] MEDS ORDERED: AZITHROMYCIN 250 MG TABLET PO STA (12:51)
--- NOTE | 2018-10-01 16:27 | PROVIDER PROGRESS NOTE ---
Subjective - Subjective Subjective: S: came in for postcoital bleeding yesterday. Here today for recheck BP and get anatomy scan. No further bleeding, no pain, feeling well. PMH: Polysubstance abuse PSH: tonsills FH: no defects Meds: none. Allergies: NKDA SH: meth and THC. Recently jailed. Does not have custody of her children. This prfegnancy is desired. OB: Last delivery was 12/17/17. O: NST baseline 150, minimal LTV seen Bliss: neg Gonorrhea: + Chlamydia: neg Hep B: neg Hep C: + antibody screen. Negative confirmation PCR x2. Syphilis: neg HIV: neg ABO: O+ Rh: + Antibody screen: CMP: normal AST, ALT, and Cr P:C ratio: 0.5 Hct: 32, normocytic Plts: 176 Rubella: immune U. tox: +meth, +THC UA: neg Ultrasound: 09/28/18 AUA 23w4d, normal fluid, anterior placenta, CL 3.3. Normal anatomy except profile could not be cleared. Nuchal cord x1. A/P: 28yo at 23w4d with no care with-- 1) gonorrhea treated with rocephin 250mg IM. Chlamydia neg but covered with 1g of azithromycin po. Discussed need for partner to be checked & prophylaxed and abstinence until he has been checked/treated. 2) polysubstance abuse meth and THC: pt is going to outpatient rehab and is excited to be clean. 3) Children in CPS system and out of the home: pt is going to supervised visit. CPS notified of + U.tox. 4) Chronic HTN vs. elevated BP due to amphetamine use. On 09/26/18 at [facility] clinic BP was 146/92. P:C is 0.5. Normal plts, AST, and ALT. Elevated BP in mild range here x2. Plans to see OB at [facility]. Buy BP cuff. Reviewed preecl symptoms. 5) poorly dated, LMP unknown, LISA 01/21/19 based on US today. 6) vax: s/p flu vax in prison. Too early to offer Tdap today 7) Hct 32: start PNV
== END 2018-09-28 13:15 | disposition home or self-care (01) ==
LOC: WFO 12:35 → FBP 12:37 → WFO 13:15
PROVIDERS: ATTEND Obstetrics & Gynecology
DX: O09.32 Supervision of pregnancy with insufficient antenatal care, second trimester (principal); Z3A.23 23 weeks gestation of pregnancy; O46.90 Antepartum hemorrhage, unspecified, unspecified trimester; O98.212 Gonorrhea complicating pregnancy, second trimester; O99.322 Drug use complicating pregnancy, second trimester; F15.10 Other stimulant abuse, uncomplicated; F12.10 Cannabis abuse, uncomplicated; O98.412 Viral hepatitis complicating pregnancy, second trimester; B19.20 Unspecified viral hepatitis C without hepatic coma; R03.0 Elevated blood-pressure reading, without diagnosis of hypertension; O09.72 Supervision of high risk pregnancy due to social problems, second trimester
CPT/HCPCS: 36415; 76811; 76815; 80053; 80306; 81001; 82570; 84156; 85025; 86762; 86780; 86787; 86900; 86901; 87210; 87340; 87389; 87491; 87522; 87591; 87902; 99212; 99214; A9270; 96372

== ENCOUNTER 2018-12-18 19:36 | Emergency (ER) | payer MEDICAID ==
[2018-12-18 19:44] VITALS: BP 187/121
== END 2018-12-18 19:52 | disposition left against medical advice (07) ==
LOC: ED 19:36
DX: Z53.21 Procedure and treatment not carried out due to patient leaving prior to being seen by health care provider (principal)

== ENCOUNTER 2018-12-18 19:50 | Inpatient (IN) | payer MEDICAID ==
[2018-12-18] MEDS ORDERED: NIFEdipine 10 MG CAPSULE PO STA (20:00)
[2018-12-18] MEDS ORDERED: SODIUM CHLORIDE FLUSH 0.9% 10 ML SYRINGE ONE (20:13)
[2018-12-18] MEDS ORDERED: LABETALOL 5 MG/1 ML 20 ML MDV ONE (20:13)
[2018-12-18] MEDS ORDERED: fentaNYL 100 MCG/2 ML VIAL IVP PRN (20:23)
[2018-12-18] MEDS ORDERED: METOCLOPRAMIDE 10 MG/2 ML VIAL IVP PRN (20:23)
[2018-12-18] MEDS ORDERED: ONDANSETRON 4 MG/2 ML VIAL IVP PRN (20:23)
[2018-12-18] MEDS ORDERED: NIFEdipine 10 MG CAPSULE PO ONE (20:23)
[2018-12-18] MEDS: MAGNESIUM SULFATE 2 GRAM 2 GM/50 ML BAG IV SCH ×2 (20:35→20:36)
[2018-12-18] MEDS ORDERED: MAGNESIUM SULFATE IN WATER 20 GM/500 ML IV.SOLN IV SCH (20:40)
[2018-12-18] MEDS ORDERED: hydrALAZINE INJ 20 MG/ML VIAL IVP ONE ×3 (20:45→22:00)
[2018-12-18 20:48] LABS: BASOPHILS # (AUTO) 0.1 10^3/uL (0.0-0.1); BASOPHILS % (AUTO) 0.7 %; EOSINOPHILS # (AUTO) 0.1 10^3/uL (0.0-0.7); EOSINOPHILS % (AUTO) 0.9 %; HGB - HEMOGLOBIN 10.1 g/dL (12.0-16.0); LYMPHOCYTES # (AUTO) 2.3 10^3/uL (1.5-3.5); LYMPHOCYTES % (AUTO) 22.4 %; MEAN CORPUSCULAR HEMOGLOBIN 25.1 pg (27.0-31.0); MEAN CORPUSCULAR HGB CONC 32.7 g/dL (32.0-36.0); MEAN CORPUSCULAR VOLUME 76.7 fL (81.0-99.0); MEAN PLATELET VOLUME 9.9 fL (7.9-10.8); MONOCYTES # (AUTO) 0.6 10^3/uL (0.0-1.0); MONOCYTES % (AUTO) 5.7 %; NEUTROPHILS # (AUTO) 7.1 10^3/uL (1.5-6.6); NEUTROPHILS % (AUTO) 70.3 %; PLT - PLATELET COUNT 156 10^3/uL (130-450); RED BLOOD COUNT 4.03 10^6/uL (4.20-5.40); RED CELL DISTRIBUTION WIDTH 16.5 % (12.0-15.0); WHITE BLOOD COUNT 10.1 x10^3/uL (4.8-10.8)
[2018-12-18] MEDS: hydrALAZINE INJ 20 MG/ML VIAL IVP PRN ×3 (20:53→22:13)
[2018-12-18 21:00] LABS: CREATININE 1.6 mg/dL (0.4-1.0)
[2018-12-18] MEDS ORDERED: LABETALOL 100 MG TABLET PO SCH (21:00)
[2018-12-18] MEDS ORDERED: OXYTOCIN/SODIUM CHLORIDE 500 ML IV SCH (21:00)
[2018-12-18] MEDS ORDERED: MAGNESIUM SULFATE 2 GRAM 2 GM/50 ML BAG IV SCH (21:00)
[2018-12-18] MEDS ORDERED: LACTATED RINGERS 1,000 ML IV SCH (21:00)
[2018-12-18] MEDS ORDERED: ACETAMINOPHEN 325 MG TABLET PO SCH (21:00)
[2018-12-18] MEDS ORDERED: hydrALAZINE INJ 20 MG/ML VIAL IVP PRN (21:39)
[2018-12-18] MEDS ORDERED: SODIUM CHLORIDE FLUSH 0.9% 10 ML SYRINGE IVP PRN (22:19)
[2018-12-18] MEDS ORDERED: AMPICILLIN 2 GM in SODIUM CHLORIDE 0.9% MINIBAG 100 ML IV ONE (22:19)
[2018-12-18] MEDS ORDERED: AZITHROMYCIN 250 MG TABLET PO STA (22:24)
[2018-12-18] MEDS ORDERED: cefTRIAXone 250 MG VIAL IM ONE (22:25)
[2018-12-18] MEDS ORDERED: LIDOCAINE 1% 2 ML VIAL MC ONE (22:25)
[2018-12-18] MEDS ORDERED: LABETALOL 5 MG/1 ML 20 ML MDV IVP PRN (22:29)
[2018-12-18 22:31] LABS: MUDS CUTOFF CONCENTRATIONS CUTOFF CONC BELOW:
[2018-12-18 22:43] LABS: BILIRUBIN,URINE NEGATIVE (NEGATIVE); GLUCOSE, URINE (UA) NEGATIVE (NEGATIVE); KETONES,URINE (UA) NEGATIVE (NEGATIVE); LEUKOCYTE ESTERASE, URINE NEGATIVE (NEGATIVE); NITRITE,URINE NEGATIVE (NEGATIVE); OCCULT BLOOD,URINE SMALL (NEGATIVE); PROTEIN,URINE >=300 mg/dL (NEGATIVE); UROBILINOGEN,URINE 0.2 (NORMAL) E.U./dL (NORMAL)
[2018-12-18 22:47] LABS: AMPHETAMINE SCREEN,URINE POSITIVE (NEGATIVE); BENZODIAZEPINES SCREEN, URINE NEGATIVE (NEGATIVE); COCAINE SCREEN URINE NEGATIVE (NEGATIVE); METHADONE SCREEN, URINE NEGATIVE (NEGATIVE); METHAMPHETAMINES SCREEN, URINE POSITIVE (NEGATIVE); OPIATE SCREEN, URINE POSITIVE (NEGATIVE); OXYCODONE SCREEN, URINE NEGATIVE (NEGATIVE); PROPOXYPHENE SCREEN, URINE NEGATIVE (NEGATIVE); TRICYCLIC ANTIDEPRESSANT,URINE NEGATIVE (NEGATIVE)
[2018-12-18 22:58] LABS: CLARITY,URINE HAZY (CLEAR)
[2018-12-18 22:59] LABS: AMORPHOUS SEDIMENT,UR Few /LPF; BACTERIA,URINE Few /HPF (None Seen); CASTS, URINE 11-25 Hyaline Casts /LPF; SQUAMOUS EPITHELIAL CELL,UR MOD Squamous (<= Few)
[2018-12-18] MEDS ORDERED: miSOPROStol 100 MCG TABLET PO SCH (23:00)
[2018-12-18] MEDS: SODIUM CHLORIDE FLUSH 0.9% 10 ML SYRINGE IVP SCH (23:10)
[2018-12-18] MEDS: SODIUM CHLORIDE FLUSH 0.9% 10 ML SYRINGE IVP PRN ×2 (23:10→23:11)
[2018-12-18 23:21] LABS: CREATININE,URINE 86.5 mg/dL; PROTEIN/CREATININE RATIO,URINE 8.3 (<=0.2)
--- NOTE | 2018-12-18 23:49 | HISTORY & PHYSICAL EXAMINATION ---
Admit History - Visit Reason Visit Reason: Other (CATHY/Pre-eclampsia with severe features) - : 5 Parity: 4 Premature: 1 Care: positive: Other (Had one visit with [facility] and was seen at [facility] ED, then entered incarceration and rehab facility. Early PNL drawn and anatmy/dating scan at 23 wga completed) Risk/History: positive: No care, labor <37 weeks, induced HTN, High risk, Other (Hx of precipitous delivery in parking lot, delivery, preeclampsia, and polysubstance abuse. Scant care) Complications This : positive: Maternal drug use, Pre- eclampsia, Other (Hepatitis C with high viral load, no treatment or monitoring. GCCT with treatment, but no ALESSIA and partner not treated. Scant care. CHTN with baseline proteinuria 0.5 by P:C. Now with preeclampsia with severe features) Smoking Status: Current every day smoker - Mother's Labs Mother's Blood Type: positive: O Mother's RH: positive: Positive GBS: positive: Other (unknown) Rubella Status: positive: Immune - Other Maternal History Other Maternal History: Ms. Fabian is a 28 yo at 36w0d by 23 weeks us here with preeclampsia with severe features. Ms. Fabian presented triage with severe headache worsening over 4 days with vision loss over the last day. Lower extremities have been swelling to the point of exquisite tenderness. Blood pressures in the 200s/120s on arrival. care has been scant. She had one PNC visit with [facility] in September. She had baseline P:C of 0.5 and hypertensive blood pressures. LMP was unclear and she was dated by an 23 week us. She did not return for further care. She was seen at [facility] ER shortly after and PNL drawn at that time. Incarcerated shortly after and did not receive any care while imprisoned. Reports havig used methamphetamines when previously jailed. Reports being clean at present. ID: She was also found to be Hep C positive with a high viral load. No follow-up or further testing. Records show positive Hep C in 2018. She was also positive for gonorrhea. Treated for GCCT at [facility] ER. Her partner was not treated and she not have a ALESSIA. Review of records show CT infection in 12/29. GBS has not been collected. Collected at intake. PSA: Hx of methamphetamine, THC, and heroin use. Incarcerated this spring. Reports attending rehab services. Utox positive for meth/amphetamines/opioids at admit. Short interpregnancy interval: prior precipitous delivery in hospital parking lot 12/17/17. Dating: Unknown LMP due to short interpregnancy interval US 09/28/18 at 24w2d--> LISA 01/15/19--> 36w0d US performed earlier n 09/28/18--> LISA 01/21/19--> 35w1d O pos/ Rub imm/ HIV neg/ RPR NR/ HepBsAg neg/ GC pos/ CT neg/Hep C positive Viral load [id number] Genotype 1A Log 6.6 Glucola not done GBS not done TDaP not done Meds/Allgy - Home Medications Home Medications: Ambulatory Orders Medication Instructions Recorded Confirmed No Known Home Medications 12/18/18 12/18/18 - Allergies Allergies/Adverse Reactions: Allergies Allergy/AdvReac Type Severity Reaction Status Date / Time No Known Drug Allergies Allergy Verified 12/18/18 19:44 Review of Systems - Constitutional Constitutional: reports: Fatigue (As per HPI, remaining systems negative) - Eyes Eyes: reports: Blurred vision, Spots in vision, Vision loss - Ears, Nose & Throat Ears, Nose & Throat: reports: Tinnitus - Neurological Neurological: reports: Headache - Psychiatric Psychiatric: reports: Other - Endocrine Endocrine: reports: Intolerance to cold, Intolerance to heat Physical - Abdominal Exam Vital Signs: Temp Pulse Resp BP Pulse Ox 145/89 H 12/18/18 22:52 Contraction Frequency (min/apart): Q2-3 min. Rare at admit Contraction Intensity: positive: Mild to moderate Uterine Resting Tone: positive: Soft - Monitoring Strip Review: positive: Category I - Presentation Presentation: positive: Vertex - Vaginal Exam Membranes: positive: Membranes intact Dilation (in cm): could not tolerate exam- 1 cm Effacement (%): 60 Station: positive: -2 Cervical Position: positive: Posterior - Speculum Exam Speculum Exam Performed: positive: No - Other Notes Labor Progress Note/Additional Text: EFM 135 mod aaron no accels no decel TOCO: Q2-3. Rare at intake. No change in SVE over 2 exams. Vertex confirmed by bedside us Plan for Labor - Plan For Labor Plan for Labor: Herlinda is a 28 yo at 35+1 to 36+0 wga based on 24 week us here with severe preeclampsia and PSA CATHY with severe features: Blood pressures in 200s/1120s at admit Now mild range/normal after nifedipine 10 mg po x1 and hydralazne 5 mg IV x2 nd 10 mg IV x1 Avoided labetalol due to methamphetamine on Utox Started magnesium 4g bolus with 2g/hr infusion Fluid restriction Keeping eclampsia dose mg and ativan on floor P:C 8.3 Creatinine 1.6 (from baseline 0.7 earlier in ) AST 30 ALT 15 HCT 31 PLTs 156 PSA: Positive for methamphetamine/amphetamine/opioids. Sample drawn prior to administration of fentanyl in house ID: Hepatitis C positive with high viral load -Unable to draw repeat labs after initial admit -Peds aware -Avoid FSE/operative delivery/etc GCCT: unsure status. NAAT drawn at admt. Given azithromycin 1g po and ceftriaxone 250 mg IM at admit UPDATE: Negative for GCCT/trich with admit NAAT GBS: unknown. Cultures drawn and ampicillin started per protocol Denies hx of genital HSV Well Being: Cat I tracing/ vertex by US/ treating for GBS unknown -Likely late between 35-36 weeks -Betamethasone 12 mg IM given x1 -Pediatrics requesting transfer to higher level of care is patient is stable for transfer LABOR: No change in serial exam. Bulging MAURA but unable to tolerate full SVE -Anticipated cervical ripening but spontaneous contractions started. Consider possibility of abruption. -Misoprostol vs pitocin with spacing of contractions In-patient care with request to transfer to [facility]
[2018-12-19] LABS: TRICHOMONAS VAGINALIS DNA NEGATIVE (NEGATIVE)
[2018-12-19] MEDS ORDERED: BETAMETHASONE 30 MG/5 ML VIAL IM ONE (00:01)
--- NOTE | 2018-12-19 02:10 | PROVIDER PROGRESS NOTE ---
Labor Progress Note - Uterine Monitoring Contraction Intensity: positive: Mild Uterine Resting Tone: positive: Soft - Monitoring Monitor Mode: positive: External ultrasound Heart Rate Variability: positive: Moderate (6-25 bmp) Accelerations: positive: Absent Decelerations: positive: None (Cat I tracing Intermittent contractions No change in SVE over serial exams) - Vaginal Exam Dilation (in cm): 1 cm- exam limited by poor tolerance Station: -3 Cervical Position: Posterior - Labor Progress Note Labor Progress Note/Additional Text: latent labor. No change in SVE Assess/Plan - Additional Planning My Orders: My Active Orders 12/18/18 09:00 Miscellaneous Laboratory Order [LAB] Urgent 12/18/18 20:23 Activity During Labor [RC] QSHIFT Electronic Monitoring - [RC] CONT Hemorrhage Pack [RC] PRN IO [RC] Q4H Initiate Line Care Protocol [RC] .protocol Initiate Line Care Protocol [RC] .protocol Initiate Oxytocin Protocol [RC] .Protocol Labor epidural if pt desires [RC] PRN Nitrous Oxide for OB [RC] PRN Vital Signs - OB [RC] Q2HR TYPE AND SCREEN Stat Metoclopramide Inj [Reglan Inj] 10 mg IVP Q6H PRN Ondansetron Inj [Zofran Inj] 4 mg IVP Q4H PRN Sodium Chloride Flush 0.9% [Normal Saline Flush 0.9%] 10 ml IVP PRN PRN fentaNYL 50 mcg IVP Q1H PRN Code Status [OTHERS] Routine Condition of Patient [OTHERS] Routine DVT Prophylaxis [OTHERS] Routine 12/18/18 20:25 Notify Provider - Specific Ins [RC] .Notify MAG level 12/18/18 20:29 SCDs [RC] QSHIFT 12/18/18 20:40 Magnesium Sulfate in Water [Magnesium Sulf 20 G/500 ml Bag] 20 gm in 500 ml IV 2 gm/hr 12/18/18 20:41 HEPATITIS C RNA QUANT RT PCR [REFLAB] Urgent 12/18/18 21:00 Acetaminophen [Tylenol] 650 mg PO Q6H Labetalol [Trandate] 100 mg PO BID Lactated Ringers [Lr] 1,000 ml IV 75 mls/hr Oxytocin/Sodium Chloride [Pitocin/Sodium Chloride] 500 ml IV TITR 12/18/18 21:13 CUL,GBS SCREEN [RM] Urgent 12/18/18 22:19 Electronic Monitoring - [RC] CONT Hemorrhage Pack [RC] PRN Sodium Chloride Flush 0.9% [Normal Saline Flush 0.9%] 10 ml IVP PRN PRN 12/18/18 22:29 Labetalol Vial [Trandate Inj] 20 mg IVP ONCE PRN hydrALAZINE INJ [Apresoline Inj] 5 mg IVP PRN PRN 12/18/18 23:00 miSOPROStol [Cytotec] 50 mcg PO Q4H 12/18/18 Breakfast Regular Diet [DIET] 12/19/18 01:00 Sodium Chloride Flush 0.9% [Normal Saline Flush 0.9%] 10 ml IVP 0100,0900,1700 12/19/18 03:00 Ampicillin 1 gm Sodium Chloride 0.9% Minibag [Normal Saline 0.9% Minibag] 100 ml IV Q4H MEDICATIONS ADMINISTERED: HTN: nifedipine 10 mg po x1 hydralazine 5 mg IV x2, 10 mg IV x1 (max dose is 25 mg in 24 hrs) CATHY: Magnesium 4g bolus with 2g/hr infusion FWB: Betamethasone 12 mg IM x1 ID: GCCT empiric trt: azithromycin 1g po x1, ceftriaxone 250 mg IM x1 GBS unknown: ampicillin 2g IV x1 (due for next dose of 1 g IV at 3:00) PAIN: fentanyl 20 mcg IV x1 N/V: Odansetron 4 mg IV x1 GBS pending Could not draw Hep C titers/HepBsAg/HIV/RPR BPs 140s/90s Transfer to [facility] Accepting Physician: Dr. Margie Kiser
[2018-12-19] MEDS ORDERED: AMPICILLIN 1 GM in SODIUM CHLORIDE 0.9% MINIBAG 100 ML IV SCH (03:00)
[2018-12-19 03:52] VITALS: BP 177/119
[2018-12-19] MEDS ORDERED: hydrALAZINE INJ 20 MG/ML VIAL ONE (04:41)
[2018-12-22 12:47] LABS: HCV RNA QNT 7.47 Log IU/mL (NOT DETECTED)
== END 2018-12-19 02:38 | disposition short-term general hospital (02) | DRG 832 ==
LOC: WFO 19:50 → FBP 19:55 → WFO 22:00
PROVIDERS: ADMIT Obstetrics & Gynecology; ATTEND Obstetrics & Gynecology
DX: O14.13 Severe pre-eclampsia, third trimester (principal); O98.413 Viral hepatitis complicating pregnancy, third trimester; O99.323 Drug use complicating pregnancy, third trimester; O09.33 Supervision of pregnancy with insufficient antenatal care, third trimester; O09.213 Supervision of pregnancy with history of pre-term labor, third trimester; F15.10 Other stimulant abuse, uncomplicated; F12.10 Cannabis abuse, uncomplicated; F11.10 Opioid abuse, uncomplicated; O99.333 Smoking (tobacco) complicating pregnancy, third trimester; F17.200 Nicotine dependence, unspecified, uncomplicated; B19.20 Unspecified viral hepatitis C without hepatic coma; Z20.2 Contact with and (suspected) exposure to infections with a predominantly sexual mode of transmission; Z3A.35 35 weeks gestation of pregnancy
CPT/HCPCS: 80306; 81001; 82565; 82570; 84156; 84450; 84460; 85025; 87081; 87491; 87522; 87591; 87661; 99213; A9270; J7120; 81003; 87086; 87340; 87389

== ENCOUNTER 2018-12-19 02:41 | Outpatient (CLI) | payer MEDICAID | END 2018-12-19 02:42 | disposition short-term general hospital (02) | LOC: EMS 02:41 | PROVIDERS: ATTEND Surgery | DX: O14.93 Unspecified pre-eclampsia, third trimester (principal) | CPT/HCPCS: A0425; A0434 ==

== ENCOUNTER 2018-12-27 09:32 | Emergency (ER) | payer OTHER, MEDICAID ==
--- NOTE | 2018-12-27 09:48 | ED Physician Documentation ---
History of Present Illness - Stated complaint Stated Complaint: FIT FOR SNF - Chief complaint Chief Complaint: Cardiac - History obtained from History obtained from: Patient - Additonal information Additional information: Patient is a G5, P5 28-year-old female presenting in police custody with concerns for hypertension.Patient had a vaginal delivery on 12/18/2018. During her and following, patient suffered from hypertension and preeclampsia. Patient was treated with multiple antihypertensives and magnesium. Patient was discharged home and not in please custody and unfortun ately did not fill her nifedipine or labetalol prescriptions. Patient was then taken into custody yesterday and please are requesting evaluation at this time. Patient reports intermittent headache without significant visual changes, although she requires glasses at baseline. Patient reports mild nausea without vomiting and mild abdominal discomfort since time of vaginal delivery. Patient reports no significant increase in vaginal bleeding which is declining appropriately since . Patient reports leg swelling which is unchanged over the past week or so since her discharge. Patient otherwise denies fever, seizure activity, or other complaints. Patient denies using recreational drugs or alcohol. No other improving or worsening factors noted. Of note, patient's child is in the NICU. Review of Systems Constitutional: denies: Fever Eyes: denies: Loss of vision Respiratory: denies: Dyspnea GI: reports: Abdominal Pain, Nausea. denies: Vomiting, Diarrhea : reports: Vaginal bleeding. 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 : None HEENT: None Psych: None Musculoskeletal: None Derm: None - Past Surgical History Past Surgical History: No - Present Medications Home Medications: Ambulatory Orders Medication Instructions Recorded Confirmed No Known Home Medications 12/18/18 12/18/18 - Allergies Allergies/Adverse Reactions: Allergies Allergy/AdvReac Type Severity Reaction Status Date / Time No Known Drug Allergies Allergy Verified 12/18/18 19:44 - Social History Does the pt smoke?: Yes Smoking Status: Current every day smoker Does the pt have substance abuse?: Yes - Immunizations Immunizations are current?: Yes - POLST Patient has POLST: No PD ED PE NORMAL - Vitals Vital signs reviewed: Yes - General General: Alert and oriented X 3, No acute distress, Well developed/nourished - HEENT HEENT: Atraumatic, Moist mucous membranes, Pharynx benign - Cardiac Cardiac: RRR, No murmur - Respiratory Respiratory: No respiratory distress, Clear bilaterally - Abdomen Abdomen: Normal bowel sounds, Soft, Non distended. No: Non tender (Mild diffuse soreness) - Derm Derm: Normal color, Warm and dry, No rash - Extremities Extremities: No deformity, No tenderness to palpate. No: No edema (Mild non pitting pedal edema bilaterally) - Neuro Neuro: Alert and oriented X 3, No motor deficit, No sensory deficit - Psych Psych: Normal mood, Normal affect Results - Vitals Vitals: Vital Signs - 24 hr 12/27/18 12/27/18 12/27/18 09:37 09:44 09:49 Temperature 37 C Heart Rate 95 74 Respiratory 18 18 Rate Blood Pressure 165/127 H 154/116 H Blood Pressure 165/127 H [Left] O2 Saturation 98 99 12/27/18 12/27/18 12/27/18 10:25 10:30 11:30 Temperature Heart Rate 84 81 76 Respiratory 18 18 18 Rate Blood Pressure 148/110 H 143/109 H 180/116 H Blood Pressure [Left] O2 Saturation 98 99 99 12/27/18 12/27/18 12/27/18 11:43 11:46 11:50 Temperature Heart Rate 84 81 79 Respiratory 18 16 18 Rate Blood Pressure 171/119 H 165/116 H 161/104 H Blood Pressure [Left] O2 Saturation 98 97 98 12/27/18 12/27/18 12/27/18 11:57 12:30 12:57 Temperature Heart Rate 80 79 80 Respiratory 16 16 18 Rate Blood Pressure 155/100 H 146/88 H 151/88 H Blood Pressure [Left] O2 Saturation 96 97 98 Oxygen O2 Source Room air - Labs Labs: Laboratory Tests 12/27/18 12/27/18 12/27/18 10:15 10:15 10:15 WBC 7.5 RBC 2.86 L Hgb 7.2 L Hct 22.6 L MCV 78.9 L MCH 25.0 L MCHC 31.7 L RDW 19.3 H Plt Count 321 MPV 7.0 L Neut # (Auto) 5.3 Lymph # (Auto) 1.3 L [place] # (Auto) 0.6 Eos # (Auto) 0.3 Baso # (Auto) 0.1 Absolute Nucleated RBC 0.00 Nucleated RBC % 0.0 PT 10.6 INR 0.9 APTT 24.0 L Sodium 137 Potassium 4.3 Chloride 103 Carbon Dioxide 24 Anion Gap 10.0 BUN 18 Creatinine 1.0 Estimated GFR (MDRD) 80 L Glucose 102 H Calcium 8.3 L Total Bilirubin 0.7 AST 30 ALT 18 Alkaline Phosphatase 89 Total Protein 5.8 L Albumin 2.3 L Globulin 3.5 Albumin/Globulin Ratio 0.7 L Lipase 23 TSH Urine Color Urine Clarity Urine pH Ur Specific [place] Urine Protein Urine Glucose (UA) Urine Ketones Urine Occult Blood Urine Nitrite Urine Bilirubin Urine Urobilinogen Ur Leukocyte Esterase Urine RBC Urine WBC Ur Squamous Epith Cells Urine Bacteria Ur Microscopic Review Urine Culture Comments Urine Opiates Screen Ur Oxycodone Screen Urine Methadone Screen Ur Propoxyphene Screen Ur Barbiturates Screen Ur Tricyclics Screen Ur Phencyclidine Scrn Ur Amphetamine Screen U Methamphetamines Scrn U Benzodiazepines Scrn Urine Cocaine Screen U Cannabinoids Screen Ethyl Alcohol < 5.0 12/27/18 12/27/18 10:15 10:40 WBC RBC Hgb Hct MCV MCH MCHC RDW Plt Count MPV Neut # (Auto) Lymph # (Auto) [place] # (Auto) Eos # (Auto) Baso # (Auto) Absolute Nucleated RBC Nucleated RBC % PT INR APTT Sodium Potassium Chloride Carbon Dioxide Anion Gap BUN Creatinine Estimated GFR (MDRD) Glucose Calcium Total Bilirubin AST ALT Alkaline Phosphatase Total Protein Albumin Globulin Albumin/Globulin Ratio Lipase TSH 2.10 Urine Color YELLOW Urine Clarity HAZY Urine pH 7.5 Ur Specific [place] 1.015 Urine Protein 100 H Urine Glucose (UA) NEGATIVE Urine Ketones NEGATIVE Urine Occult Blood SMALL H Urine Nitrite NEGATIVE Urine Bilirubin NEGATIVE Urine Urobilinogen 0.2 (NORMAL) Ur Leukocyte Esterase TRACE H Urine RBC 0-5 Urine WBC 0-3 Ur Squamous Epith Cells MOD Squamous H Urine Bacteria Rare Ur Microscopic Review INDICATED Urine Culture Comments NOT INDICATED Urine Opiates Screen NEGATIVE Ur Oxycodone Screen NEGATIVE Urine Methadone Screen NEGATIVE Ur Propoxyphene Screen NEGATIVE Ur Barbiturates Screen POSITIVE H Ur Tricyclics Screen NEGATIVE Ur Phencyclidine Scrn NEGATIVE Ur Amphetamine Screen POSITIVE H U Methamphetamines Scrn POSITIVE H U Benzodiazepines Scrn POSITIVE H Urine Cocaine Screen NEGATIVE U Cannabinoids Screen NEGATIVE Ethyl Alcohol PD MEDICAL DECISION MAKING - ED course Complexity details: reviewed old records, reviewed results, re-evaluated magdy beth, considered differential, d/w patient, d/w human capital consultant ED course: Patient is presenting with hypertension associated symptoms several days . Patient suffered from pretension and preeclampsia changes during her , as well as mainly after. Feel that she is continuing to experience preeclamptic changes, likely due to medication noncompliance and concern for continued illicit substance use. Physical exam is relatively unremarkable. Patient started on labetalol 40 mg IV initially which showed mild decline in blood pressure, but rebounded quite quickly. Patient to receive labetalol 80 mg IV and home dose of nifedipine orally. Screening lab work obtained which found decreased H&H, likely reflective of her Recent vaginal . Do not feel patient is at high risk of hemorrhage or DIC at this time, particularly given remainder of coagulopathy studies within normal limits. Also had concern for other issues like help syndrome, but LFTs and other lab work returned within normal limits. However, urinalysis showed presence of blood, protein, leukocyte esterase. Drug screen also returned positive for barbiturates, benzodiazepines, methamphetamine, and amphetamine. Discussed patient with both GRAPHICS EDITOR here locally, as well as GRAPHICS EDITOR at [place] where patient delivered and received some postdelivery care. GRAPHICS EDITOR here feels most comfortable sending patient back to [place] and GRAPHICS EDITOR at [facility] is agreeable to this plan. Patient is also amenable to this plan. DOC will accompany patient. Departure - Departure Disposition: 02 Transfer Acute Care Hosp Clinical Impression: Preeclampsia Qualifiers: Trimester: unspecified trimester Qualified Code(s): O14.90 - Unspecified pre- eclampsia, unspecified trimester Condition: Fair
[2018-12-27] MEDS ORDERED: LABETALOL 5 MG/1 ML 20 ML MDV IVP STA ×2 (09:57→11:32)
[2018-12-27 10:23] LABS: BASOPHILS # (AUTO) 0.1 10^3/uL (0.0-0.1); BASOPHILS % (AUTO) 0.8 %; EOSINOPHILS # (AUTO) 0.3 10^3/uL (0.0-0.7); EOSINOPHILS % (AUTO) 3.4 %; HGB - HEMOGLOBIN 7.2 g/dL (12.0-16.0); LYMPHOCYTES # (AUTO) 1.3 10^3/uL (1.5-3.5); MEAN CORPUSCULAR HGB CONC 31.7 g/dL (32.0-36.0); MEAN CORPUSCULAR VOLUME 78.9 fL (81.0-99.0); MONOCYTES # (AUTO) 0.6 10^3/uL (0.0-1.0); MONOCYTES % (AUTO) 8.2 %; NEUTROPHILS # (AUTO) 5.3 10^3/uL (1.5-6.6); NEUTROPHILS % (AUTO) 70.6 %; PLT - PLATELET COUNT 321 10^3/uL (130-450); RED BLOOD COUNT 2.86 10^6/uL (4.20-5.40); RED CELL DISTRIBUTION WIDTH 19.3 % (12.0-15.0); WHITE BLOOD COUNT 7.5 x10^3/uL (4.8-10.8)
[2018-12-27 10:36] LABS: ALBUMIN 2.3 g/dL (3.2-5.5); ALBUMIN/GLOBULIN RATIO 0.7 (1.0-2.2); ALKALINE PHOSPHATASE 89 IU/L (42-121); ALT ALANINE AMINOTRANSFERASE 18 IU/L (10-60); AST ASPARTATE AMINOTRANSFERASE 30 IU/L (10-42); BILIRUBIN,TOTAL 0.7 mg/dL (0.2-1.0); BUN - BLOOD UREA NITROGEN 18 mg/dL (6-20); CALCIUM 8.3 mg/dL (8.5-10.3); CARBON DIOXIDE - CO2 24 mmol/L (21-32); CHLORIDE 103 mmol/L (101-111); GFR - MDRD 80 (>89); GLUCOSE 102 mg/dL (70-100); LIPASE 23 U/L (22-51); SODIUM 137 mmol/L (135-145); TOTAL PROTEIN 5.8 g/dL (6.7-8.2)
[2018-12-27 10:40] LABS: INR 0.9 (0.8-1.2); PT - PROTHROMBIN TIME 10.6 secs (9.9-12.6)
[2018-12-27 10:48] LABS: MUDS CUTOFF CONCENTRATIONS CUTOFF CONC BELOW:
[2018-12-27 10:51] LABS: BILIRUBIN,URINE NEGATIVE (NEGATIVE); GLUCOSE, URINE (UA) NEGATIVE (NEGATIVE); KETONES,URINE (UA) NEGATIVE (NEGATIVE); LEUKOCYTE ESTERASE, URINE TRACE (NEGATIVE); NITRITE,URINE NEGATIVE (NEGATIVE); OCCULT BLOOD,URINE SMALL (NEGATIVE); PH,URINE 7.5 PH (5.0-7.5); PROTEIN,URINE 100 mg/dL (NEGATIVE); UROBILINOGEN,URINE 0.2 (NORMAL) E.U./dL (NORMAL)
[2018-12-27 10:56] LABS: CLARITY,URINE HAZY (CLEAR)
[2018-12-27 11:00] LABS: AMPHETAMINE SCREEN,URINE POSITIVE (NEGATIVE); METHAMPHETAMINES SCREEN, URINE POSITIVE (NEGATIVE)
[2018-12-27 11:01] LABS: BENZODIAZEPINES SCREEN, URINE POSITIVE (NEGATIVE); COCAINE SCREEN URINE NEGATIVE (NEGATIVE); METHADONE SCREEN, URINE NEGATIVE (NEGATIVE); OPIATE SCREEN, URINE NEGATIVE (NEGATIVE); OXYCODONE SCREEN, URINE NEGATIVE (NEGATIVE); PROPOXYPHENE SCREEN, URINE NEGATIVE (NEGATIVE); TRICYCLIC ANTIDEPRESSANT,URINE NEGATIVE (NEGATIVE)
[2018-12-27 11:11] LABS: BACTERIA,URINE Rare /HPF (None Seen); RBC,URINE 0-5 /HPF (0-5); SQUAMOUS EPITHELIAL CELL,UR MOD Squamous (<= Few)
[2018-12-27] MEDS ORDERED: NIFEdipine 10 MG CAPSULE PO STA (11:32)
[2018-12-27 15:05] VITALS: BP 114/71
== END 2018-12-27 15:00 | disposition short-term general hospital (02) ==
LOC: ED 09:32
DX: O11.5 Pre-existing hypertension with pre-eclampsia, complicating the puerperium (principal); O99.335 Smoking (tobacco) complicating the puerperium; O99.325 Drug use complicating the puerperium; Z91.14 Patient's other noncompliance with medication regimen
CPT/HCPCS: 36415; 80320; 81001; 83690; 85610; 85730; 96374; 96376; 99284; A9270; 80053; 80306; 81003; 84443; 85025; 87086; 99285

== ENCOUNTER 2019-01-30 18:11 | Emergency (ER) | payer OTHER, MEDICAID ==
--- NOTE | 2019-01-30 18:22 | ED Physician Documentation ---
History of Present Illness - Stated complaint Stated Complaint: [facility] - Chief complaint Chief Complaint: General - History obtained from History obtained from: Patient - History of Present Illness Timing: Prior to arrival - Additonal information Additional information: Patient is a 28-year-old female brought in by police for evaluation prior to placement in shelter. Patient is right-handed and complains of injury to palmar aspect of left hand below pinky finger. Patient reports that she cut it on a sun visor. Patient reports tenderness and bleeding to the area. Patient denies decreased range of motion or strength, but admits to decreased sensation to the pinky finger. Tetanus unknown. No other injuries or complaints. No other improving or worsening factors noted. Review of Systems Skin: reports: Laceration (s) Musculoskeletal: reports: Extremity pain Neurologic: reports: Numbness. 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 : None HEENT: None Psych: None Musculoskeletal: None Derm: None - Past Surgical History Past Surgical History: No - Present Medications Home Medications: Ambulatory Orders Medication Instructions Recorded Confirmed No Known Home Medications 12/18/18 12/18/18 - Allergies Allergies/Adverse Reactions: Allergies Allergy/AdvReac Type Severity Reaction Status Date / Time No Known Drug Allergies Allergy Verified 01/30/19 18:15 - Social History Does the pt smoke?: Yes Smoking Status: Current every day smoker Does the pt have substance abuse?: Yes - Immunizations Immunizations are current?: Yes - POLST Patient has POLST: No PD ED PE NORMAL - Vitals Vital signs reviewed: Yes - General General: Alert and oriented X 3, No acute distress, Well developed/nourished (Poor hygiene) - HEENT HEENT: Moist mucous membranes. No: Atraumatic (No acute trauma noted, but appearance of resolving ecchymosis to periorbital area on the right.) - Neck Neck: Supple, no meningeal sign - Cardiac Cardiac: Strong equal pulses - Respiratory Respiratory: No respiratory distress - Derm Derm: Normal color, Warm and dry, No rash, Other (Punctate laceration to palmar aspect of left hand directly below pinky finger.) - Extremities Extremities: No deformity, No tenderness to palpate - Neuro Neuro: Alert and oriented X 3, No motor deficit, No sensory deficit - Psych Psych: Normal mood, Normal affect Results - Vitals Vitals: Vital Signs - 24 hr 01/30/19 18:12 Temperature 37.1 C Heart Rate 86 Respiratory 18 Rate Blood Pressure 156/115 H O2 Saturation 100 Oxygen O2 Source Room air PD MEDICAL DECISION MAKING - ED course Complexity details: re-evaluated patient, considered differential, d/w patient ED course: Patient presenting in police custody for further evaluation of small laceration to left hand. Patient reports puncture wound from broken sun visor earlier today. Tetanus unknown, but patient refuses tetanus shot in ED. Wound anesthetized with let and cleaned out. Small amount of skin overlying wound removed, but no significant damage to underlying structures noted. Do not find evidence of retained foreign body, infection, tendon injury or other complication. Feel the patient is safe to discharge in police custody and advised on wound care, supportive cares otherwise, return precautions, and follow-up. Departure - Departure Disposition: 01 Home, Self Care Clinical Impression: Hand laceration Qualifiers: Encounter type: initial encounter Foreign body presence: without foreign body Laterality: left Qualified Code(s): S61.412A - Laceration without foreign body of left hand, initial encounter Condition: Good Instructions: ED Laceration Hand Follow-Up: your,doctor [Other] Comments: Please keep wound clean and dry using running water and soap only to clean. Do not submerge underwater. May apply bacitracin or Neosporin and bandaging as needed. May use ibuprofen/Tylenol for pain control. Also recommend elevation and ice application to reduce swelling. Please follow-up with primary care physician in next 2 to 3 days and return to ED sooner if experience signs of infection or other complications.
[2019-01-30] MEDS ORDERED: LIDOCAINE-EPINEPH-TETRACAINE 3 ML SYRINGE TOP STA (18:36)
[2019-01-30] MEDS ORDERED: TETANUS/DIPHTHERIA/PERTUSSIS 0.5 ML SYRINGE IM ONE (18:36)
[2019-01-30] MEDS ORDERED: BACITRACIN OINT TOP ONE (19:43)
[2019-01-30 20:20] VITALS: BP 175/113
== END 2019-01-30 20:23 | disposition home or self-care (01) ==
LOC: ED 18:11
DX: S61.432A Puncture wound without foreign body of left hand, initial encounter (principal); W26.8XXA Contact with other sharp object(s), not elsewhere classified, initial encounter; I10 Essential (primary) hypertension; F17.200 Nicotine dependence, unspecified, uncomplicated
CPT/HCPCS: 99281; 99282; A9270

== ENCOUNTER 2019-03-07 00:29 | Emergency (ER) | payer MEDICAID, OTHER ==
[2019-03-07 00:35] VITALS: BP 138/113
[2019-03-07] MEDS ORDERED: NIFEdipine ER 90 MG TABLET PO STA (00:51)
[2019-03-07] MEDS ORDERED: LABETALOL 100 MG TABLET PO STA (00:52)
--- NOTE | 2019-03-07 00:56 | ED Physician Documentation ---
History of Present Illness - Stated complaint Stated Complaint: [facility] - Chief complaint Chief Complaint: General - History obtained from History obtained from: Patient, Police - History of Present Illness Timing: Today - Additonal information Additional information: 28-year-old female is brought to the emergency department by [facility] deputy for treatment of hypertension. The patient has an active warrant and the patient is being brought to residential and has a history of hypertension. The patient indicates that she has not been taking her antihypertensives as she has not secured a primary care physician. She gives history that she had preeclampsia with her recent delivery in December of this year and was compliant only for several weeks she has been confined in residential in January and following that she was compliant for 2 weeks. She states that she has been noncompliant since and presents today with a diastolic of 113. She is not otherwise having symptoms. Denies any current illness. Review of Systems Constitutional: reports: Fatigue. 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 : None HEENT: None Psych: None Musculoskeletal: None Derm: None - Past Surgical History Past Surgical History: No - Present Medications Home Medications: Ambulatory Orders Medication Instructions Recorded Confirmed Labetalol HCl 200 mg PO TID 03/07/19 03/07/19 Nifedipine [Nifedipine ER] 1 tab PO DAILY 03/07/19 03/07/19 - Allergies Allergies/Adverse Reactions: Allergies Allergy/AdvReac Type Severity Reaction Status Date / Time No Known Drug Allergies Allergy Verified 03/07/19 00:33 - Social History Does the pt smoke?: Yes Smoking Status: Current every day smoker Does the pt drink ETOH?: No Does the pt have substance abuse?: Yes Substance Use and Type: Meth, Heroin - Immunizations Immunizations are current?: Yes - POLST Patient has POLST: No PD ED PE NORMAL - Vitals Vital signs reviewed: Yes (HYPERTENSIVE DIASTOLIC) - General General: Alert and oriented X 3, No acute distress, Well developed/nourished - HEENT HEENT: Atraumatic, PERRL, EOMI, Ears normal - Neck Neck: Supple, no meningeal sign, No bony TTP - Cardiac Cardiac: RRR, No murmur - Respiratory Respiratory: No respiratory distress, Clear bilaterally - Abdomen Abdomen: Normal bowel sounds, Soft, Non tender, Non distended, No organomegaly - Back Back: No CVA TTP, No spinal TTP - Derm Derm: Normal color, Warm and dry, No rash - Extremities Extremities: No deformity, No edema, No calf tenderness / cord - Neuro Neuro: Alert and oriented X 3, 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, No motor deficit, No sensory deficit, Normal speech Eye Opening: Spontaneous Motor: Obeys Commands Verbal: Oriented GCS Score: 15 - Psych Psych: Normal mood, Normal affect Results - Vitals Vitals: Vital Signs - 24 hr 03/07/ 00:30 Temperature 36.1 C L Heart Rate 109 H Respiratory 16 Rate Blood Pressure 138/113 H O2 Saturation 98 Oxygen O2 Source Room air PD MEDICAL DECISION MAKING - ED course Complexity details: considered differential, d/w patient ED course: 28-year-old female with history of hypertension has been noncompliant and is hypertensive here in the emergency department she is being evaluated for physical confinement and we have recommended that she take her antihypertensive medications including nifedipine 90 mg extended release daily and labetalol HCL 200 mg 3 times daily. She is given a dose of each of these medicines here in the emergency department. Departure - Departure Disposition: 01 Home, Self Care Clinical Impression: Hypertension Qualifiers: Hypertension type: unspecified Qualified Code(s): I10 - Essential (primary) hy pertension Condition: Stable Instructions: ED Hypertension Conf Out Of Control Follow-Up: [facility] [Provider Group] Comments: Today your blood pressure is elevated and you are given medications for control. When you are released from residential follow-up with the [facility] for ongoing care.
== END 2019-03-07 01:01 | disposition home or self-care (01) ==
LOC: ED 00:29
DX: I10 Essential (primary) hypertension (principal); T46.5X6A Underdosing of other antihypertensive drugs, initial encounter; Z91.128 Patient's intentional underdosing of medication regimen for other reason; F17.200 Nicotine dependence, unspecified, uncomplicated
CPT/HCPCS: 99282; 99283; A9270

== ENCOUNTER 2019-03-28 14:04 | Outpatient (CLI) | payer MEDICAID | END 2019-03-28 14:05 | disposition critical access hospital (66) | LOC: EMS 14:04 | PROVIDERS: ATTEND Surgery | DX: R06.2 Wheezing (principal); X58.XXXA Exposure to other specified factors, initial encounter | CPT/HCPCS: A0425; A0427; A0999 ==

== ENCOUNTER 2019-03-28 14:33 | Emergency (ER) | payer MEDICAID ==
[2019-03-28] MEDS ORDERED: predniSONE 20 MG TABLET PO STA (14:48)
--- NOTE | 2019-03-28 14:59 | ED Physician Documentation ---
History of Present Illness - Stated complaint Stated Complaint: BEE STING - Chief complaint Chief Complaint: Allergic Rx - History obtained from History obtained from: Patient - History of Present Illness Timing: Today Pain level max: 0 Pain level now: 0 - Additonal information Additional information: bee sting today. Given epi by EMS and benadryl. Currently feels better. bee sting to R foot. Review of Systems Constitutional: denies: Fever, Chills Throat: denies: Sore throat Cardiac: denies: Chest pain / pressure, Palpitations Respiratory: reports: Dyspnea (States some dyspnea initially, none now). 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 : None HEENT: None Psych: None Musculoskeletal: None Derm: None - Past Surgical History Past Surgical History: No - Present Medications Home Medications: Ambulatory Orders Medication Instructions Recorded Confirmed Labetalol HCl 200 mg PO TID 03/07/19 03/07/19 Nifedipine [Nifedipine ER] 1 tab PO DAILY 03/07/19 03/07/19 EPINEPHrine [Epinephrine] 0.3 mg IJ ONCE PRN #1 auto.injct 03/28/19 predniSONE [Prednisone] 40 mg PO DAILY #6 tablet 03/28/19 - Allergies Allergies/Adverse Reactions: Allergies Allergy/AdvReac Type Severity Reaction Status Date / Time No Known Drug Allergies Allergy Verified 03/07/19 00:33 - Social History Does the pt smoke?: Yes Smoking Status: Current every day smoker Does the pt drink ETOH?: No Does the pt have substance abuse?: Yes - Immunizations Immunizations are current?: Yes - POLST Patient has POLST: No PD ED PE NORMAL - Vitals Vital signs reviewed: Yes - General General: Alert and oriented X 3, No acute distress, Well developed/nourished - HEENT HEENT: PERRL, Moist mucous membranes, Pharynx benign - Neck Neck: Supple, no meningeal sign - Cardiac Cardiac: RRR, Strong equal pulses - Respiratory Respiratory: No respiratory distress, Clear bilaterally - Abdomen Abdomen: Soft, Non tender, Non distended - Derm Derm: Warm and dry, No rash - Extremities Extremities: No edema - Neuro Neuro: Alert and oriented X 3 - Psych Psych: Normal mood, Normal affect Results - Vitals Vitals: Vital Signs - 24 hr 03/28/19 03/28/19 14:35 15:46 Temperature 37.7 C H Heart Rate 131 H 115 H Respiratory 22 15 Rate Blood Pressure 164/123 H 165/117 H O2 Saturation 100 96 Oxygen O2 Source Room air PD MEDICAL DECISION MAKING - ED course Complexity details: considered differential, d/w patient ED course: Patient with an allergic reaction to a bee sting. Monitored in the emergency department until the epinephrine wore off. No recurrence of allergic reaction. Will start on steroids. No evidence of anaphylaxis. Patient counseled regarding signs and symptoms for which I believe and urgent re-evaluation would be necessary. Patient with good understanding of and agreement to plan and is comfortable going home at this time This document was made in part using voice recognition software. While efforts are made to proofread this document, sound alike and grammatical errors may occur. Her friend will be with her today. Patient was counseled that if she has recurrent symptoms to use the epinephrine pen and immediately seek medical attention. Departure - Departure Disposition: 01 Home, Self Care Clinical Impression: Bee sting allergy Condition: Good Instructions: ED Bite Sting Insect Gen Allergic React Follow-Up: your,doctor in 1 week [Other] Prescriptions: EPINEPHrine [Epinephrine] 0.3 mg IJ ONCE PRN #1 auto.injct PRN Reason: Anaphylaxis predniSONE [Prednisone] 40 mg PO DAILY #6 tablet Comments: Return if you worsen. Follow-up with your doctor for further care. You can use Benadryl as needed for itching. If you use the epinephrine pen when you are having difficulty breathing, you need to come immediately to the emergency depa rtment to be evaluated. Discharge Date/Time: 03/28/19 16:14
[2019-03-28 15:47] VITALS: BP 165/117
== END 2019-03-28 16:14 | disposition home or self-care (01) ==
LOC: EDUNIT# → ED 14:33
DX: T63.441A Toxic effect of venom of bees, accidental (unintentional), initial encounter (principal); X58.XXXA Exposure to other specified factors, initial encounter; I10 Essential (primary) hypertension; F17.200 Nicotine dependence, unspecified, uncomplicated
CPT/HCPCS: 99283; J7512

== ENCOUNTER 2019-07-13 04:04 | Emergency (ER) | payer OTHER, MEDICAID ==
--- NOTE | 2019-07-13 04:09 | ED Physician Documentation ---
History of Present Illness - Stated complaint Stated Complaint: FIT FOR CON - Chief complaint Chief Complaint: General - History obtained from History obtained from: Patient, Police - History of Present Illness Timing: Unknown (no symptoms) - Additonal information Additional information: brought in by police for medical clearance for confinement. has h/o hypert ension, is on monotherapy for hypertension. She takes this medication BID but she cannot recall what it is. She says she used to be on labetalol and nifedipine but these were stopped and replaced with whatever medication she is on now. She is asymptomatic; denies GONSALEZ, CP, dyspnea, weakness, numbness. 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 HEENT: None Psych: None Musculoskeletal: None Derm: None - Past Surgical History Past Surgical History: No - Present Medications Home Medications: Ambulatory Orders Medication Instructions Recorded Confirmed High Blood Pressure Meds 07/13/19 - Allergies Allergies/Adverse Reactions: Allergies Allergy/AdvReac Type Severity Reaction Status Date / Time No Known Drug Allergies Allergy Verified 07/13/19 04:13 - Social History Does the pt smoke?: Yes Smoking Status: Current every day smoker Does the pt drink ETOH?: No Does the pt have substance abuse?: Yes - Immunizations Immunizations are current?: Yes - POLST Patient has POLST: No PD ED PE NORMAL - Vitals Vital signs reviewed: Yes - General General: Alert and oriented X 3, No acute distress, Well developed/nourished - HEENT HEENT: Moist mucous membranes - Cardiac Cardiac: RRR, No murmur, No gallop, No rub - Respiratory Respiratory: No respiratory distress, Clear bilaterally - Neuro Neuro: Alert and oriented X 3, trap puller 2-12 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, No motor deficit, No sensory deficit, Normal speech Eye Opening: Spontaneous Motor: Obeys Commands Verbal: Oriented GCS Score: 15 Results - Vitals Vitals: Vital Signs - 24 hr 07/13/19 07/13/19 07/13/19 04:05 04:36 04:48 Temperature 36.4 C L Heart Rate 90 Respiratory 16 Rate Blood Pressure 165/111 H 155/115 H 160/124 H O2 Saturation 100 07/13/19 04:59 Temperature Heart Rate Respiratory Rate Blood Pressure 162/118 H O2 Saturation Oxygen O2 Source Room air PD MEDICAL DECISION MAKING - ED course Complexity details: reviewed old records, reviewed results, re-evaluated patient, considered differential, d/w patient ED course: Presents for clearance for incarceration. She is asymptomatic, has hypertension with DBP 110s in ED. Given amlodipine 10mg PO. D/W [place] Phipps, will f[facility] today [facility] regarding hypertension Departure - Departure Disposition: 01 Home, Self Care Clinical Impression: Medical clearance for incarceration, Hypertension Condition: Good Instructions: ED Hypertension Conf Out Of Control Discharge Date/Time: 07/13/19 05:08
[2019-07-13] MEDS ORDERED: amLODIPine 5 MG TABLET PO STA (04:22)
[2019-07-13 04:59] VITALS: BP 162/118
== END 2019-07-13 05:08 | disposition home or self-care (01) ==
LOC: ED 04:04
DX: Z02.89 Encounter for other administrative examinations (principal); I10 Essential (primary) hypertension; F17.200 Nicotine dependence, unspecified, uncomplicated
CPT/HCPCS: 99282; 99283; A9270

== ENCOUNTER 2020-02-18 11:31 | Outpatient (CLI) | payer MEDICAID ==
[2020-02-18 11:42] VITALS: BP 129/86
--- NOTE | 2020-02-18 14:47 | PROVIDER PROGRESS NOTE ---
- HPI Chief Complaint: Other (29 yo at 37+6 wga with hx of abruption/ severe PreE here with vaginal bleeding. 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 IC yesterday afternoon with partner. VB this am, soaking underwear. No active bleeding at present. Blood on exam glove at 1st exam, small on 2nd.) Current : Current EDU 03/04/20 Gestation 37 Weeks and 6 Days 7 Para 5 Vital Signs Temperature 98.2 F 02/18/20 11:40 Heart Rate 67 02/18/20 11:40 Respiratory Rate 18 02/18/20 11:40 Blood Pressure 129/86 H 02/18/20 11:40 O2 Saturation 96 02/18/20 11:40 Temperature 98.2 F 02/18/20 11:40 Heart Rate 67 02/18/20 11:40 Respiratory Rate 18 02/18/20 11:40 Blood Pressure 129/86 H 02/18/20 11:40 O2 Saturation 96 02/18/20 11:40 - Exam GEN: NAD HEENT: NCAT CV: RR RESP: nl effort ABD: gravid, S&NT SVE: RN exam 380/-2, unchanged over 2+ hours observation EXT: WWP PSYCH: bright and reactive affect - Procedures OB Procedure Performed: NST NST Procedure: EFM 110 mod aaron 15x15 accels no decels TOCO: intermittent Initial baseline was 120 at presentation at 11:30 At about 14:20, baseline wavered between 106-112 VAS shows excellent response with 15x15 accels Overall Cat I tracing Obtaining BPP for brief interludes of mild bradycardia Moderate variabillity throughout Subutex taken at approximately 9:30 am Active in recovery program Service Date of procedure: 02/18/20 Procedure Details: EFM 110 mod aaron 15 x15 accels no decels TOCO: intermittent BPP / Growth US c/w 38+1 wga ; EFW not calculated No change in SVE Bleeding no longer active Cat I tracing with normal BPP/LUISA/placentation/ weight Discharged to home with warning signs reviewed.
--- NOTE | 2020-02-18 17:34 | Ultrasound Report ---
PROCEDURE: OB F/U or Repeat INDICATIONS: growth assessment; history of intrauterine growth restriction OUTSIDE/PRIOR DATING DATA: TECHNIQUE: Real-time scanning was performed of the fetus, with image documentation and biometric measurements. Endovaginal scanning: Performed COMPARISON: None. FINDINGS: General: A single living intrauterine gestation is present. Presentation: Cephalic Placenta: Placental position is anterior, without previa. Amniotic fluid index: 13.7 cm, normal for gestational age. heart rate: 114 beats per minute. Maternal cervical canal: 3.5 cm long; normal length is 2.5 cm or more. biometrics: Biparietal diameter: 9.3 cm, which corresponds to 37 weeks 6 days gestational age Head circumference: 34.1, which corresponds to 39 weeks 2 days gestational age Abdominal circumference: 33.6, which corresponds to 37 weeks 3 days gestational age Femur length: 7.4, which corresponds to 38 weeks 0 days gestational age Estimated gestational age from initial scan: not applicable. Composite gestational age from present scan: 38 weeks 1 day Estimated weight: 3325 g Other: Not applicable. IMPRESSION: Single live intrauterine gestation with estimated gestational age of 38 weeks 1 day and estimated weight of 3325 g. Reviewed by: Zaid Rhodes MD on 02/18/2020 5:32 PM PDT Approved by: Zaid Rhodes MD on 02/18/2020 5:32 PM PDT Station ID: [id number]
--- NOTE | 2020-02-18 17:35 | Ultrasound Report ---
PROCEDURE: OB Biophysical Profile INDICATIONS: Vaginal bleeding; history of placental abruption TECHNIQUE: Real-time scanning was performed of the fetus, with image documentation and biometric melvina surements. Biophysical profile was also obtained. Endovaginal scanning: Performed COMPARISON: None. FINDINGS: Biophysical profile: Tone: 2 points. Movement: 2 points. Respiration: 2 points. Largest pocket of fluid: 2 points. Umbilical artery Doppler: Proximal S/D ratio is 3.2; mid segment S/D ratio is 2.4; distal S/D ratio is 2.4. IMPRESSION: Normal biophysical profile and cord S/D ratios. Reviewed by: Zaid Rhodes MD on 02/18/2020 5:34 PM PDT Approved by: Zaid Rhodes MD on 02/18/2020 5:34 PM PDT Station ID: [id number]
== END 2020-02-18 17:44 | disposition home or self-care (01) ==
LOC: WFO 11:31 → FBP 11:33 → WFO 17:44
PROVIDERS: ATTEND Obstetrics & Gynecology
DX: O46.93 Antepartum hemorrhage, unspecified, third trimester (principal); O36.8330 Maternal care for abnormalities of the fetal heart rate or rhythm, third trimester, not applicable or unspecified; O99.323 Drug use complicating pregnancy, third trimester; F15.20 Other stimulant dependence, uncomplicated; Z3A.38 38 weeks gestation of pregnancy; Z87.59 Personal history of other complications of pregnancy, childbirth and the puerperium
CPT/HCPCS: 76816; 76819; 99214

== ENCOUNTER 2020-02-18 20:59 | Inpatient (IN) | payer MEDICAID ==
[2020-02-18] MEDS ORDERED: SODIUM CHLORIDE FLUSH 0.9% 10 ML SYRINGE IVP PRN (21:41)
[2020-02-18] MEDS ORDERED: OXYTOCIN/SODIUM CHLORIDE 500 ML IV PRN (21:41)
[2020-02-18] MEDS ORDERED: OXYTOCIN 10 UNIT/ML VIAL IM PRN (21:41)
[2020-02-18] MEDS ORDERED: TRANEXAMIC ACID 1,000 MG in SODIUM CHLORIDE 0.9% 100ML 100 ML IV PRN (21:41)
[2020-02-18] MEDS ORDERED: LIDOCAINE-MPF 1% 30 ML VIAL ID PRN (21:41)
[2020-02-18] MEDS ORDERED: miSOPROStoL 200 MCG TABLET BC PRN (21:41)
[2020-02-18] MEDS ORDERED: METHYLERGONOVINE 0.2 MG/ML VIAL IM PRN (21:41)
[2020-02-18] MEDS ORDERED: CARBOPROST TROMETHAMINE 250 MCG/ML AMP IM PRN (21:41)
[2020-02-18] MEDS ORDERED: ONDANSETRON ODT 4 MG TABLET TL PRN (21:56)
[2020-02-18] MEDS ORDERED: OXYTOCIN/SODIUM CHLORIDE 500 ML IV SCH (22:00)
[2020-02-18] MEDS ORDERED: ONDANSETRON 4 MG/2 ML VIAL IVP PRN (22:03)
[2020-02-18] MEDS: LACTATED RINGERS 1,000 ML IV SCH (23:05)
[2020-02-18] MEDS: miSOPROStoL 100 MCG TABLET BC SCH (23:23)
[2020-02-18 23:27] LABS: BASOPHILS % (AUTO) 0.5 %; EOSINOPHILS # (AUTO) 0.1 10^3/uL (0.0-0.7); EOSINOPHILS % (AUTO) 0.8 %; HGB - HEMOGLOBIN 12.7 g/dL (12.0-16.0); LYMPHOCYTES # (AUTO) 1.5 10^3/uL (1.5-3.5); LYMPHOCYTES % (AUTO) 23.6 %; MEAN CORPUSCULAR HEMOGLOBIN 31.5 pg (27.0-31.0); MEAN CORPUSCULAR HGB CONC 34.9 g/dL (32.0-36.0); MEAN CORPUSCULAR VOLUME 90.3 fL (81.0-99.0); MEAN PLATELET VOLUME 11.8 fL (7.9-10.8); MONOCYTES # (AUTO) 0.5 10^3/uL (0.0-1.0); MONOCYTES % (AUTO) 7.2 %; NEUTROPHILS # (AUTO) 4.2 10^3/uL (1.5-6.6); NEUTROPHILS % (AUTO) 67.4 %; PLT - PLATELET COUNT 151 10^3/uL (130-450); RED BLOOD COUNT 4.03 10^6/uL (4.20-5.40); WHITE BLOOD COUNT 6.3 x10^3/uL (4.8-10.8)
[2020-02-18 23:37] LABS: ALBUMIN 2.9 g/dL (3.2-5.5); ALBUMIN/GLOBULIN RATIO 0.8 (1.0-2.2); BILIRUBIN,TOTAL 0.9 mg/dL (0.2-1.0); CALCIUM 8.7 mg/dL (8.5-10.3); CREATININE 0.8 mg/dL (0.4-1.0); TOTAL PROTEIN 6.6 g/dL (6.7-8.2)
[2020-02-18 23:59] LABS: MUDS CUTOFF CONCENTRATIONS CUTOFF CONC BELOW:
[2020-02-19 00:10] LABS: BENZODIAZEPINES SCREEN, URINE NEGATIVE (NEGATIVE); METHADONE SCREEN, URINE NEGATIVE (NEGATIVE); TRICYCLIC ANTIDEPRESSANT,URINE NEGATIVE (NEGATIVE)
[2020-02-19 00:11] LABS: AMPHETAMINE SCREEN,URINE NEGATIVE (NEGATIVE); COCAINE SCREEN URINE NEGATIVE (NEGATIVE); METHAMPHETAMINES SCREEN, URINE NEGATIVE (NEGATIVE); OPIATE SCREEN, URINE NEGATIVE (NEGATIVE); OXYCODONE SCREEN, URINE NEGATIVE (NEGATIVE); PROPOXYPHENE SCREEN, URINE NEGATIVE (NEGATIVE)
[2020-02-19] MEDS ORDERED: busPIRone 5 MG TABLET PO ONE (00:14)
[2020-02-19] MEDS ORDERED: ARIPiprazole 5 MG TABLET PO ONE (00:15)
[2020-02-19] MEDS: ARIPiprazole 5 MG TABLET PO SCH ×3 (00:15→22:46)
[2020-02-19] MEDS ORDERED: levETIRAcetam 250 MG TABLET ONE (00:15)
[2020-02-19] MEDS: busPIRone 5 MG TABLET PO SCH ×4 (00:15→22:38)
[2020-02-19] MEDS: levETIRAcetam 100 MG/ML 473ML BOTTLE PO SCH (00:16)
[2020-02-19 00:21] LABS: CREATININE,URINE 524.5 mg/dL; PROTEIN/CREATININE RATIO,URINE 0.2 (<=0.2)
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
[2020-02-19] MEDS: miSOPROStoL 100 MCG TABLET BC SCH ×2 (03:33→07:42)
[2020-02-19] MEDS: LACTATED RINGERS 1,000 ML IV SCH (05:50)
[2020-02-19] MEDS: levETIRAcetam 250 MG TABLET PO SCH ×2 (08:22→22:38)
[2020-02-19] MEDS ORDERED: ROPIVACAINE 0.2% 0 MG/0 ML BAG EP ONE (10:14)
[2020-02-19] MEDS: BUPRENORPHINE 2 MG SL SCH ×2 (10:20→22:46)
[2020-02-19] MEDS ORDERED: fentaNYL 100 MCG/2 ML VIAL ONE ×2 (11:33→12:02)
[2020-02-19] MEDS ORDERED: BUPIVACAINE 0.25% PF 10 ML VIAL ONE (11:33)
[2020-02-19] MEDS ORDERED: fentaNYL 100 MCG/2 ML VIAL IVP SCH (12:47)
[2020-02-19] MEDS ORDERED: SIMETHICONE CHEW 80 MG TABLET PO PRN (12:52)
[2020-02-19] MEDS ORDERED: HYDROCORTISONE 1% CREAM 28 GM TUBE PR PRN (12:52)
[2020-02-19] MEDS ORDERED: LACTATED RINGERS 1,000 ML IV SCH (13:00)
--- NOTE | 2020-02-19 13:02 | DELIVERY NOTE ---
Delivery Note - Infant Delivery Method Infant Delivery Method: positive: Spontaneous vaginal delivery - Cervical Ripening Method Cervical Ripening Method: positive: Misoprostil - Presentation Presentation: positive: Vertex - Nuchal Cord Nuchal Cord: positive: None - Anesthetic Anesthetic Type: Anesthetic: positive: Lidocaine - 1% plain Volume: positive: Other (25 cc) - Amniotic Fluid Description Amniotic Fluid Description: positive: Light meconium, Other (Unclear due to rapidity of rupture and delivery, reported as possibly light meconium) - Laceration Laceration: positive: 2nd degree, Perineal - Suture Suture Type: positive: Vicryl Suture Size: positive: 3-0 - Delivery Outcome Delivery Outcome: positive: Livebirth - : positive: Placed in direct skin contact with mother, Stimulated, [place] used [place] sex: positive: Male - Estimated Blood Loss Estimated Blood Loss (in cc): 200 - Post Delivery Events Post Delivery Events: positive: No post delivery events - Delivery Comments (Free Text/Narrative) Delivery Comments (Free Text/Narrative): Patient is a 29 yo admitted at 37+6 wga with a complicated by 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 There is also a history of endocarditis with septic emboli associated with in 2014, in the setting of active IVDU. This has been relatively uncomplicated with continuity of care, history of urine tox screens documented as negative throughout , normal blood pressures without antihypertensives, appropriate growth, and close follow-up with maternal medicine. Patient transferred care to [facility] on 02/17/2020. On 02/18/2020, she presented to triage in the afternoon with new onset vaginal bleeding. SVE was unchanged during observation, blood pressures were normal. tracing showed borderline low baseline but was reactive. BPP was 8/8 and a growth us showed appropriate growth and normal dopplers. She returned home and had recurrence of bleeding with higher volume in the evening. One isolated mild range blood pressure on presentation. [facility] notes recommended delivery between 38- 39 weeks. Given hx of abruption, volume of bleeding, and increasing blood pressures, the decision was made to augment her intermittent contractions. Urine tox screen was negative. Initial SVE was 2/80/-2. Patient received misoprostol 25 mcg BC x3. No pitocin augmentation was indicated. GBS negative. Epidural was desired but labor progressed too quickly for administration. SVE was 6/80/-1 at 11:29 sm on 02/19/2020. At 11:40 patient had involuntary desire to push. Spontaneous rupture of membranes at 11:41 am, notable for possible light meconium. Cat I tracing throughout Stage I labor. STAGE II: delivery at 11:42 am with minimal maternal expulsive effort. Delivered easily from MAURICIO position with right shoulder anterior. No nuchal cord. A true knot was noted at near the insertion of the umbilical cord. Infant was delivered to mother's chest. Cord was clamped x2 and cut after pulsations had ceased. Apgars were 8/9 with weight pending. STAGE III: Placenta delivered with manual expression. It was examined and found to be intact. Examination of the perineum revealed a midline 2nd laceration which was repaired in the usual sterile fashion in layers using 3-0 Vicryl. Good hemostasis was noted. EBL 200 mL. Patient was given misoprostol 600 mcg BC x1 as a preventive measure given grand-multiparity and history of delayed hemorrhage.
--- NOTE | 2020-02-19 13:31 | ANESTHESIA PROCEDURE NOTE ---
Height and Weight: Height 5 ft 6 in Weight (kg) 103.873 kg Body Mass Index 23.1 Vital Signs: Temp Pulse Resp BP Pulse Ox 37.0 C 71 17 134/88 H 97 02/18/20 22:22 02/18/20 21:09 02/18/20 21:09 02/18/20 21:20 02/18/20 21:09 Allergies amoxicillin Allergy (Verified 02/19/20 00:34) Itching Anesthesia Epidural Template - Patient Report Patient Reports: positive: Other - Other Comments Other Comments: Called for labor epidural, multiple attempts, patient complained of right parathesia several times, never able to enter epidural space, aborted as patient refused additional attempts and needed to push.
[2020-02-19] MEDS: ACETAMINOPHEN 500 MG TABLET PO SCH ×2 (14:29→22:39)
[2020-02-19] MEDS: IBUPROFEN 600 MG TABLET PO SCH ×2 (14:30→22:39)
--- NOTE | 2020-02-19 21:02 | PROVIDER PROGRESS NOTE ---
Subjective - Prog Note Date Prog Note Date: 02/19/20 Prog Note Time: 21:01 - Subjective Subjective: Doing well Denies heavy bleeding No concerns with pain FF below umbi Routine pp care Objective - Vital Signs/Intake & Output Vital Signs: Vital Signs x48h Temp Pulse Resp BP Pulse Ox 02/19/20 19:48 99.3 F 67 18 128/85 H 98 02/19/20 15:32 99.1 F 65 18 130/73 99 Intake & Output: Intake & Output 02/16/20 02/17/20 02/18/20 02/19/20 23:59 23:59 23:59 23:59 Intake Total 675 Output Total 800 900 Balance -800 -225 - Lab Results Fish Bones: 02/18/20 23:00 02/18/20 23:00 Other Labs: Lab Results x24hrs 02/18/20 02/18/20 02/18/20 Range/Units 23:57 23:57 23:00 WBC (4.8-10.8) x10^3/uL RBC (4.20-5.40) 10^6/uL Hgb (12.0-16.0) g/dL Hct (37.0-47.0) % MCV (81.0-99.0) fL MCH (27.0-31.0) pg MCHC (32.0-36.0) g/dL RDW (12.0-15.0) % Plt Count (130-450) 10^3/uL MPV (7.9-10.8) fL Neut # (Auto) (1.5-6.6) 10^3/uL Lymph # (Auto) (1.5-3.5) 10^3/uL Mobile # (Auto) (0.0-1.0) 10^3/uL Eos # (Auto) (0.0-0.7) 10^3/uL Baso # (Auto) (0.0-0.1) 10^3/uL Absolute Nucleated RBC x10^3/uL Nucleated RBC % /100WBC Sodium 136 (135-145) mmol/L Potassium 3.6 (3.5-5.0) mmol/L Chloride 101 (101-111) mmol/L Carbon Dioxide 24 (21-32) mmol/L Anion Gap 11.0 (6-13) BUN 11 (6-20) mg/dL Creatinine 0.8 (0.4-1.0) mg/dL Estimated GFR (MDRD) 103 (>89) Glucose 79 (70-100) mg/dL Calcium 8.7 (8.5-10.3) mg/dL Total Bilirubin 0.9 (0.2-1.0) mg/dL AST 29 (10-42) IU/L ALT 22 (10-60) IU/L Alkaline Phosphatase 174 H (42-121) IU/L Total Protein 6.6 L (6.7-8.2) g/dL Albumin 2.9 L (3.2-5.5) g/dL Globulin 3.7 (2.1-4.2) g/dL Albumin/Globulin Ratio 0.8 L (1.0-2.2) Urine Creatinine 524.5 mg/dL Ur Total Protein Timed 94 mg/dL Protein/Creatinin Ratio 0.2 (<=0.2) Urine Opiates Screen NEGATIVE (NEGATIVE) Ur Oxycodone Screen NEGATIVE (NEGATIVE) Urine Methadone Screen NEGATIVE (NEGATIVE) Ur Propoxyphene Screen NEGATIVE (NEGATIVE) Ur Barbiturates Screen NEGATIVE (NEGATIVE) Ur Tricyclics Screen NEGATIVE (NEGATIVE) Ur Phencyclidine Scrn NEGATIVE (NEGATIVE) Ur Amphetamine Screen NEGATIVE (NEGATIVE) U Methamphetamines Scrn NEGATIVE (NEGATIVE) U Benzodiazepines Scrn NEGATIVE (NEGATIVE) Urine Cocaine Screen NEGATIVE (NEGATIVE) U Cannabinoids Screen NEGATIVE (NEGATIVE) Blood Type Antibody Screen Crossmatch IS Only 02/18/20 02/18/20 Range/Units 23:00 23:00 WBC 6.3 (4.8-10.8) x10^3/uL RBC 4.03 L (4.20-5.40) 10^6/uL Hgb 12.7 (12.0-16.0) g/dL Hct 36.4 L (37.0-47.0) % MCV 90.3 (81.0-99.0) fL MCH 31.5 H (27.0-31.0) pg MCHC 34.9 (32.0-36.0) g/dL RDW 13.0 (12.0-15.0) % Plt Count 151 (130-450) 10^3/uL MPV 11.8 H (7.9-10.8) fL Neut # (Auto) 4.2 (1.5-6.6) 10^3/uL Lymph # (Auto) 1.5 (1.5-3.5) 10^3/uL Mobile # (Auto) 0.5 (0.0-1.0) 10^3/uL Eos # (Auto) 0.1 (0.0-0.7) 10^3/uL Baso # (Auto) 0.0 (0.0-0.1) 10^3/uL Absolute Nucleated RBC 0.00 x10^3/uL Nucleated RBC % 0.0 /100WBC Sodium (135-145) mmol/L Potassium (3.5-5.0) mmol/L Chloride (101-111) mmol/L Carbon Dioxide (21-32) mmol/L Anion Gap (6-13) BUN (6-20) mg/dL Creatinine (0.4-1.0) mg/dL Estimated GFR (MDRD) (>89) Glucose (70-100) mg/dL Calcium (8.5-10.3) mg/dL Total Bilirubin (0.2-1.0) mg/dL AST (10-42) IU/L ALT (10-60) IU/L Alkaline Phosphatase (42-121) IU/L Total Protein (6.7-8.2) g/dL Albumin (3.2-5.5) g/dL Globulin (2.1-4.2) g/dL Albumin/Globulin Ratio (1.0-2.2) Urine Creatinine mg/dL Ur Total Protein Timed mg/dL Protein/Creatinin Ratio (<=0.2) Urine Opiates Screen (NEGATIVE) Ur Oxycodone Screen (NEGATIVE) Urine Methadone Screen (NEGATIVE) Ur Propoxyphene Screen (NEGATIVE) Ur Barbiturates Screen (NEGATIVE) Ur Tricyclics Screen (NEGATIVE) Ur Phencyclidine Scrn (NEGATIVE) Ur Amphetamine Screen (NEGATIVE) U Methamphetamines Scrn (NEGATIVE) U Benzodiazepines Scrn (NEGATIVE) Urine Cocaine Screen (NEGATIVE) U Cannabinoids Screen (NEGATIVE) Blood Type O POSITIVE Antibody Screen NEGATIVE Crossmatch IS Only See Detail
[2020-02-19] MEDS: DOCUSATE SODIUM 100 MG CAPSULE PO PRN (22:39)
[2020-02-20] MEDS: SODIUM CHLORIDE FLUSH 0.9% 10 ML SYRINGE IVP SCH ×3 (06:00→21:03)
[2020-02-20] MEDS: busPIRone 5 MG TABLET PO SCH ×3 (06:30→20:55)
[2020-02-20] MEDS: IBUPROFEN 600 MG TABLET PO SCH ×3 (06:30→20:53)
[2020-02-20] MEDS: ACETAMINOPHEN 500 MG TABLET PO SCH ×2 (08:49→20:54)
[2020-02-20] MEDS: BUPRENORPHINE 2 MG SL SCH ×2 (08:49→20:55)
[2020-02-20] MEDS: levETIRAcetam 250 MG TABLET PO SCH ×2 (08:49→20:54)
[2020-02-20] MEDS: DOCUSATE SODIUM 100 MG CAPSULE PO PRN ×2 (08:49→20:54)
[2020-02-20] MEDS: ARIPiprazole 5 MG TABLET PO SCH ×2 (08:49→20:54)
--- NOTE | 2020-02-20 11:09 | PROVIDER PROGRESS NOTE ---
Subjective - Prog Note Date Prog Note Date: 02/20/20 Prog Note Time: 11:06 - Subjective Subjective: Patient is up and ambulating, tolerating po, and voiding. Pain is well managed with pain medications. Lochia minimal. Objective - Vital Signs/Intake & Output Vital Signs: Vital Signs x48h Temp Pulse Resp BP Pulse Ox 02/20/20 07:57 97.9 F 55 L 17 116/70 99 02/20/20 03:56 98.1 F 52 L 16 108/66 97 Intake & Output: Intake & Output 02/17/20 02/18/20 02/19/20 02/20/20 23:59 23:59 23:59 23:59 Intake Total 675 Output Total 800 900 Balance -800 -225 - Objective General Appearance: positive: No acute distress Respiratory: positive: No respiratory distress Cardiovascular: positive: Other (RR) Abdomen: positive: Non-tender, Other (FF below umbi) Skin: positive: Color nml Extremities: positive: Non-tender, No pedal edema Neurologic/Psychiatric: positive: Oriented x3 - Lab Results Fish Bones: 02/18/20 23:00 02/18/20 23:00 Assessment/Plan - Problem List (1) (spontaneous vaginal delivery) Impression: PPD#1: Doing well Routine pp care Awaiting CPS assessment and infant observedfor suboxone exposure Cont in-patient care
[2020-02-21] MEDS: IBUPROFEN 600 MG TABLET PO SCH ×3 (02:25→20:51)
[2020-02-21] MEDS: busPIRone 5 MG TABLET PO SCH ×3 (05:11→22:11)
--- NOTE | 2020-02-21 07:58 | PROVIDER PROGRESS NOTE ---
Subjective - Prog Note Date Prog Note Date: 02/21/20 Prog Note Time: 07:57 - Subjective Subjective: Up and ambulating. Tolerating po. Pain well managed. Lochia appropriate BF supplemented by formula. Patient very attentive to baby. Holding him at every interaction I've had with patient. Taking care to swaddle/snuggling and BF to keep SHAJI scores in check. Needs to supplement and using nipple shield as delivery system for formula. Objective - Vital Signs/Intake & Output Vital Signs: Vital Signs x48h Temp Pulse Resp BP Pulse Ox 02/21/20 07:48 98.4 F 54 L 18 125/67 98 02/21/20 02:00 98.4 F 73 16 105/72 98 Intake & Output: Intake & Output 02/18/20 02/19/20 02/20/20 02/21/20 23:59 23:59 23:59 23:59 Intake Total 675 Output Total 800 900 Balance -800 -225 - Objective General Appearance: positive: No acute distress Neck: positive: Nml inspection Respiratory: positive: Breath sounds nml Cardiovascular: positive: Other (RR) Abdomen: positive: Other (Soft, FF below umbi) Skin: positive: Color nml Extremities: positive: Non-tender, Nml appearance, No pedal edema Neurologic/Psychiatric: positive: Oriented x3 - Lab Results Fish Bones: 02/18/20 23:00 02/18/20 23:00 Assessment/Plan - Problem List (1) (spontaneous vaginal delivery) Impression: PPD#2 s/p Routine pp care Subutex in [facility], adminsitered by staff nuclear weapons officer Dispo pending CPS assessment
[2020-02-21] MEDS: ARIPiprazole 5 MG TABLET PO SCH ×2 (09:18→20:51)
[2020-02-21] MEDS: levETIRAcetam 250 MG TABLET PO SCH ×2 (09:18→20:52)
[2020-02-21] MEDS: ACETAMINOPHEN 500 MG TABLET PO SCH ×2 (09:18→20:52)
[2020-02-21] MEDS: DOCUSATE SODIUM 100 MG CAPSULE PO PRN ×2 (09:18→20:51)
[2020-02-21] MEDS: BUPRENORPHINE 2 MG SL SCH ×2 (09:18→20:51)
[2020-02-21] MEDS: SODIUM CHLORIDE FLUSH 0.9% 10 ML SYRINGE IVP SCH (09:23)
[2020-02-22] MEDS: IBUPROFEN 600 MG TABLET PO SCH ×2 (04:42→11:00)
[2020-02-22] MEDS: SODIUM CHLORIDE FLUSH 0.9% 10 ML SYRINGE IVP SCH (04:42)
[2020-02-22] MEDS: ACETAMINOPHEN 500 MG TABLET PO SCH (04:46)
[2020-02-22] MEDS: busPIRone 5 MG TABLET PO SCH ×2 (06:15→13:58)
[2020-02-22] MEDS: levETIRAcetam 250 MG TABLET PO SCH (09:02)
[2020-02-22] MEDS: DOCUSATE SODIUM 100 MG CAPSULE PO PRN (09:02)
[2020-02-22] MEDS: BUPRENORPHINE 2 MG SL SCH (09:02)
[2020-02-22] MEDS: ARIPiprazole 5 MG TABLET PO SCH (09:02)
[2020-02-22 12:17] VITALS: BP 147/88
--- NOTE | 2020-02-22 14:10 | PROVIDER PROGRESS NOTE ---
Subjective - Prog Note Date Prog Note Date: 02/22/20 Prog Note Time: 14:07 - Subjective Subjective: Patient is doing well. Nervous about CPS meeting. No pain. Minimal bleeding. Mix of and formula. Attentive to . Voiding and tolerating po. Objective - Vital Signs/Intake & Output Vital Signs: Vital Signs x48h Temp Pulse Resp BP Pulse Ox 02/22/20 12:17 97.9 F 69 16 147/88 H 99 02/22/20 08:21 98.6 F 73 16 141/85 H 98 Intake & Output: Intake & Output 02/19/20 02/20/20 02/21/20 02/22/20 23:59 23:59 23:59 23:59 Intake Total 675 Output Total 900 Balance -225 - Objective General Appearance: positive: No acute distress Neck: positive: Nml inspection Respiratory: positive: No respiratory distress, Breath sounds nml Cardiovascular: positive: Regular rate & rhythm Abdomen: positive: Non-tender, Other (FF belo wumbi) Back: positive: Nml inspection Skin: positive: Color nml Neurologic/Psychiatric: positive: Oriented x3 - Lab Results Fish Bones: 02/18/20 23:00 02/18/20 23:00 Other Labs: Lab Results x24hrs 02/18/20 Range/Units 23:00 Crossmatch IS Only See Detail Assessment/Plan - Problem List (1) (spontaneous vaginal delivery) Impression: PPD#4: Mild range blood pressures today noted after exam High anxiety related to CPS involvement Will reassess prior to final discharge Routine discharge instructions given DC to home Declines DC meds.
--- NOTE | 2020-02-22 17:08 | Labor Flowsheet ---
Labor Flowsheet Datetime Report Generated by CPN: 02/22/2020 17:08 Datetime: 02/21/2020 07:15 VITAL SIGNS NBP Sys/Jennifer/Mean (mmHg): 125 : 67 : 79 Pulse: 55 SpO2 (%): 99 Datetime: 02/19/2020 12:27 MEDICATIONS Cervical Ripening Agents: Cytotec @ 600 Medication Comments: Post- Datetime: 02/19/2020 11:43 Stage of : Recovery Datetime: 02/19/2020 11:42 Comments: Poor tracing due to maternal positioning and movement Datetime: 02/19/2020 11:41 Membranes Rupture Method: Spontaneous Amniotic Fluid Color: Light Meconium Amniotic Fluid Amount: Small COMMUNICATION Communication: Provider at Bedside Provider Notified (Name): Dr. Tiffanyorley Datetime: 02/19/2020 11:40 STAGE 2 Pushing: Involuntary Pushing Pushing Position: Pushing with Contractions; Pushing Lithotomy Pushing Progress: Descent with Pushing Communication Comments: Called provider to bedside LaborFlag: Labor Datetime: 02/19/2020 11:35 PROCEDURE TIME OUT Procedure Verify: Correct Patient Identity; Correct Side and Site are Marked; Accurate Procedure Co nsent Form; Agreement on Procedure to be Done; Correct Patient Position ANESTHESIA Anesthesia Plans: Epidural Epidural Positioning: Sitting Datetime: 02/19/2020 11:30 UTERINE ACTIVITY Monitor Mode: External Frequency (min): 1.5-3.5 Quality: Strong Duration (sec): 70-100 Pattern: Normal: <= 5 Contractions in 10 Minutes Resting Tone (Palpate): Relaxed ASSESSMENT A Monitor Mode: Telemetry FHR Baseline Rate : 115 Variability: Moderate 6-25 bpm Accelerations: 15X15 Decelerations: None Category: Category I Oxygen Method: Room Air Datetime: 02/19/2020 11:29 VAGINAL EXAM Dilatation (cm): 6.0 Effacement (%): 80 Station: -1 Exam by: Tawanna Doe RN Membrane Status: Bulging Vaginal Bleeding: Normal Show Cervix, Consistency: Soft Cervix, Position: Midposition Datetime: 02/19/2020 11:03 PAIN Pain Scale: 6 Pain Presence: Intermittent Pain Location: Back Pain Coping: Breathing Through Contractions Pain Assessment Comments: Attempting to get an epidural Comfort Measures: Breathing/Relaxation Datetime: 02/19/2020 11:00 Contraction Comments: Poor tracing for contractions due to maternal position; contraction palpates strong Datetime: 02/19/2020 09:40 Respirations: 19 Temperature (C): 37.2 Datetime: 02/19/2020 09:36 Patient Position/Activity: Semi-Fowlers Patient Care Comments: Out of jacuzzi Datetime: 02/19/2020 08:53 Hygiene: Underpad Changed Datetime: 02/19/2020 08:48 Monitor Interventions for FHR: Ultrasound Adjusted Datetime: 02/19/2020 08:02 I/O Interventions: Up to BR Datetime: 02/19/2020 07:44 MATERNAL ASSESSMENT Level of Consciousness: Alert Headache: Denies Breath Sounds, Left: Clear and Equal Breath Sounds, Right: Clear and Equal Nausea/Vomiting: Denies RUQ Epigastric Pain: Denies Datetime: 02/19/2020 07:42 Pain Type: Contraction; Ache Datetime: 02/19/2020 07:01 FHR Baseline Changes: No Baseline Change Datetime: 02/19/2020 03:30 Pain Goal: 5 Pain Relief Measures: Comfort Measures Datetime: 02/18/2020 23:00 PATIENT CARE IV/Blood Work: IV Started; Labs Drawn with IV Start Datetime: 02/18/2020 22:35 Monitor Interventions for UA: [place] Adjusted
--- NOTE | 2020-02-25 11:11 | DISCHARGE SUMMARY ---
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 Had been seen earlier in the day with VB and borderline low baseline. Observed for several hours and sent home. Now with heavier VB and mild range BP. No LOF. Mildly decreased FM Irreg CTX. Had been followed closely by maternal medicine, who had recommended delivery between 38 and 39 wga. Presented with large file of medical records including signed BTL consent. SEIZURE DISORDER: no hx of tonic/clonic -Well controlled on Keppra 750 mg po bid RECOVERY for PSA: -No illicit drug use since 07/01 -Currently on suboxone 2 mg po bid Does not have meds with her and not on formulary -Aware that [facility] does not have [facility] program. Aware that will be transferred to [place] in the setting of withdrawal -Neg MUDS screen at admission -Aripiprazole and buspirone ordered CONTRACEPTION: Desires BTL. Signed [facility] consents 11/2019. 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 There is also a history of endocarditis with septic emboli associated with in 2015, in the setting of active IVDU. This has been relatively uncomplicated with continuity of care, history of urine tox screens documented as negative throughout , normal blood pressures without antihypertensives, appropriate growth, and close follow-up with maternal medicine. Patient transferred care to [facility] on 02/17/2020. On 02/18/2020, she presented to triage in the afternoon with new onset vaginal bleeding. SVE was unchanged during observation, blood pressures were normal. tracing showed borderline low baseline but was reactive. BPP was 8/8 and a growth us showed appropriate growth and normal dopplers. She returned home and had recurrence of bleeding with higher volume in the evening. One isolated mild range blood pressure on presentation. [facility] notes recommended delivery between 38- 39 weeks. Given hx of abruption, volume of bleeding, and increasing blood pressures, the decision was made to augment her intermittent contractions. Urine tox screen was negative. Initial SVE was 2/80/-2. Patient received misoprostol 25 mcg BC x3. No pitocin augmentation was indicated. GBS negative. Epidural was desired but labor progressed too quickly for administration. SVE was 6/80/-1 at 11:29 sm on 02/19/2020. At 11:40 patient had involuntary desire to push. Spontaneous rupture of membranes at 11:41 am, notable for possible light meconium. Cat I tracing throughout Stage I labor. STAGE II: Infant delivery at 11:42 am with minimal maternal expulsive effort. Delivered easily from MAURICIO position with right shoulder anterior. No nuchal cord. A true knot was noted at near the insertion of the umbilical cord. Infant was delivered to mother's chest. Cord was clamped x2 and cut after pulsations had ceased. Apgars were 8/9 with weight pending. STAGE III: Placenta delivered with manual expression. It was examined and found to be intact. Examination of the perineum revealed a midline 2nd laceration which was repaired in the usual sterile fashion in layers using 3-0 Vicryl. Good hemostasis was noted. EBL 200 mL. Patient was given misoprostol 600 mcg BC x1 as a preventive measure given grand-multiparity and history of delayed hemorrhage. course was uncomplicated. Prolongation of stay due to CPS investigation. Discharged to boarding status. - ALLERGIES Allergies/Adverse Reactions: Allergies Allergy/AdvReac Type Severity Reaction Status Date / Time amoxicillin Allergy Itching Verified 02/19/20 00:34 - MEDICATIONS Home Medications: Ambulatory Orders Medication Instructions Recorded Confirmed High Blood Pressure Meds 07/13/19 ARIPiprazole [Aripiprazole] BID 02/19/20 Buspirone HCl PO TID 02/19/20 Ferrous Gluconate [Iron] 324 mg PO 02/19/20 Folic Acid QDAC 02/19/20 Ondansetron [Ondansetron Odt] Q6HR PRN 02/19/20 Pnv No.121/Iron/Folic Acid DAILY 02/19/20 [ Multivitamin Tablet] buprenorphine HCL [Buprenorphine 02/19/20 HCl] buprenorphine HCL [Buprenorphine 2 mg SL BID 02/19/20 02/19/20 HCl] hydrOXYzine HCL [Hydroxyzine HCl] 1 - 2 tab PO PRN PRN 02/19/20 02/19/20 levETIRAcetam [Levetiracetam] 1.5 tab PO BID 02/19/20 02/19/20 - LABS Result Diagrams: 02/18/20 23:00 02/18/20 23:00 - FOLLOW UP Follow Up: 1 week with Jimmie - TIME SPENT Time Spent in Discharge (Minutes): 30
== END 2020-02-22 17:07 | disposition home or self-care (01) | DRG 806 ==
LOC: WFO 20:59 → FBP 21:01 → WFO 21:40 → FBP 21:41
PROVIDERS: ADMIT Obstetrics & Gynecology; ATTEND Obstetrics & Gynecology
PROC: 10E0XZZ Delivery of Products of Conception, External Approach (ICD-10-PCS; principal; 2020-02-19)
PROC: 0KQM0ZZ Repair Perineum Muscle, Open Approach (ICD-10-PCS; 2020-02-19)
DX: O46.93 Antepartum hemorrhage, unspecified, third trimester (principal); O99.324 Drug use complicating childbirth; Z37.0 Single live birth; F15.20 Other stimulant dependence, uncomplicated; O10.92 Unspecified pre-existing hypertension complicating childbirth; O99.354 Diseases of the nervous system complicating childbirth; O98.42 Viral hepatitis complicating childbirth; Q43.1 Hirschsprung's disease; O69.2XX0 Labor and delivery complicated by other cord entanglement, with compression, not applicable or unspecified; O77.0 Labor and delivery complicated by meconium in amniotic fluid; O70.1 Second degree perineal laceration during delivery; G40.909 Epilepsy, unspecified, not intractable, without status epilepticus; B19.20 Unspecified viral hepatitis C without hepatic coma; O99.334 Smoking (tobacco) complicating childbirth; F41.9 Anxiety disorder, unspecified; O99.345 Other mental disorders complicating the puerperium; F17.200 Nicotine dependence, unspecified, uncomplicated; O36.8330 Maternal care for abnormalities of the fetal heart rate or rhythm, third trimester, not applicable or unspecified; Z3A.37 37 weeks gestation of pregnancy; Z79.899 Other long term (current) drug therapy; Z86.718 Personal history of other venous thrombosis and embolism; Z87.59 Personal history of other complications of pregnancy, childbirth and the puerperium
CPT/HCPCS: 76816; 76819; 80053; 80306; 82570; 84156; 85025; 86850; 86900; 86901; 86920; 87522; 99213; 99406; A9270; J7120; Q0162; 99214

== ENCOUNTER 2020-02-24 10:45 | Inpatient (IN) | payer MEDICAID ==
[2020-02-24] MEDS ORDERED: ACETAMINOPHEN 500 MG TABLET PO ONE (11:00)
[2020-02-24 11:13] LABS: BASOPHILS % (AUTO) 0.6 %; EOSINOPHILS # (AUTO) 0.2 10^3/uL (0.0-0.7); EOSINOPHILS % (AUTO) 3.1 %; HGB - HEMOGLOBIN 13.1 g/dL (12.0-16.0); LYMPHOCYTES # (AUTO) 1.1 10^3/uL (1.5-3.5); LYMPHOCYTES % (AUTO) 16.5 %; MEAN CORPUSCULAR HEMOGLOBIN 31.6 pg (27.0-31.0); MEAN CORPUSCULAR HGB CONC 35.1 g/dL (32.0-36.0); MEAN CORPUSCULAR VOLUME 89.9 fL (81.0-99.0); MEAN PLATELET VOLUME 10.9 fL (7.9-10.8); MONOCYTES # (AUTO) 0.3 10^3/uL (0.0-1.0); NEUTROPHILS # (AUTO) 4.7 10^3/uL (1.5-6.6); NEUTROPHILS % (AUTO) 74.3 %; PLT - PLATELET COUNT 175 10^3/uL (130-450); RED BLOOD COUNT 4.15 10^6/uL (4.20-5.40); RED CELL DISTRIBUTION WIDTH 12.5 % (12.0-15.0); WHITE BLOOD COUNT 6.4 x10^3/uL (4.8-10.8)
[2020-02-24 11:28] LABS: URIC ACID 7.5 mg/dL (2.6-7.2)
[2020-02-24 11:30] LABS: ALBUMIN 3.1 g/dL (3.2-5.5); BILIRUBIN,DIRECT 0.1 mg/dL (0.1-0.5); BILIRUBIN,TOTAL 0.4 mg/dL (0.2-1.0); TOTAL PROTEIN 6.9 g/dL (6.7-8.2)
[2020-02-24 11:37] LABS: CREATININE,URINE 124.6 mg/dL; PROTEIN/CREATININE RATIO,URINE 0.3 (<=0.2)
[2020-02-24] MEDS ORDERED: LIDOCAINE-MPF 1% 30 ML VIAL ONE (18:55)
[2020-02-24] MEDS ORDERED: MAGNESIUM SULFATE 2 GRAM 2 GM/50 ML BAG IV SCH (19:00)
[2020-02-24] MEDS ORDERED: LACTATED RINGERS 1,000 ML IV SCH (19:00)
[2020-02-24] MEDS ORDERED: MAGNESIUM SULFATE IN WATER 20 GM/500 ML IV.SOLN IV SCH (19:00)
--- NOTE | 2020-02-24 19:42 | HISTORY & PHYSICAL EXAMINATION ---
DATE OF SERVICE: 02/24/2020 Physician: El Patton MD IDENTIFICATION: Patient is a 29-year-old G7, P6, premature 2, 1 female. She delivered on 02/19/2020. CHIEF COMPLAINT: Headache as well as blood pressure elevation. HISTORY OF PRESENT ILLNESS: Patient delivered on 02/18. She had a history of having had severe preeclampsia, which need to be transferred to a tertiary center with her last . She had a history of having drug abuse in the past, but has undergone treatment and at this point is currently drug free. Following this recent delivery she did well. There were some concerns with Apns, so the infant was kept that she was discharged to rooming in. This morning, she developed a severe headache. She also had blood pressures, which were mild to moderately elevated. Because of a history of preeclampsia with 2 previous pregnancies she had laboratories obtained, which showed a uric acid of 7.5. Her protein creatinine ratio was 0.3. The remainder of her labs showed a platelet count, which was stable at 175. Hemoglobin which was 13.1, AST and ALT were both normal. PAST MEDICAL HISTORY Positive for 1. Chronic hypertension. 2. Preeclampsia. PAST SURGICAL HISTORY: Unremarkable. ALLERGIES: NONE KNOWN. MEDICATIONS 1. Patient was initially started on baby aspirin daily, which she discontinued at 36 weeks. 2. She also was on Procardia for hypertension, but stopped that, but states her blood pressures have been normal throughout her . PHYSICAL EXAMINATION GENERAL: Well-developed, well-nourished female. She is somewhat apprehensive about having to stay in the hospital and concerned about the use of magnesium. Her pupils are equal, round. VITAL SIGNS: Blood pressures, most recently have been 145/94, 146/90. HEENT: Pupils equal, round. Extraocular muscles are intact. Thyroid is not palpably enlarged. HEART: Regular rate and rhythm without murmurs. LUNGS: Lung ramirez are clear without rales or wheezes. BACK: No supine or CVA tenderness noted. ABDOMEN: Soft, nontender. The uterus was palpated roughly 3-4 cm below the umbilicus: Her DTRs are +1. However, she does show a beat of clonus on the left ankle. IMPRESSION 1. Five days status post delivery. 2. History of severe preeclampsia. 3. Probably late onset preeclampsia. PLAN: We will start the patient on magnesium sulfate 4 gram load with 2 grams an hour. We will also initiate some labetalol because of her history of hypertension. TD: 02/24/2020 18:03 YOSSI
[2020-02-24] MEDS: ACETAMINOPHEN 325 MG TABLET PO PRN (19:49)
[2020-02-24] MEDS ORDERED: ONDANSETRON ODT 4 MG TABLET TL PRN (20:46)
[2020-02-24] MEDS ORDERED: BUPRENORPHINE 0.3 MG/ML AMP IM ONE (20:47)
[2020-02-24] MEDS ORDERED: levETIRAcetam 100 MG/ML 473ML BOTTLE PO SCH (21:00)
[2020-02-24] MEDS: busPIRone 5 MG TABLET PO SCH (21:59)
[2020-02-24] MEDS: levETIRAcetam 250 MG TABLET PO SCH (22:02)
[2020-02-24] MEDS: LABETALOL 100 MG TABLET PO SCH (22:03)
[2020-02-24] MEDS: ARIPiprazole 5 MG TABLET PO SCH (22:05)
[2020-02-24] MEDS: DOCUSATE SODIUM 100 MG CAPSULE PO SCH (22:05)
[2020-02-25] MEDS: ACETAMINOPHEN 325 MG TABLET PO PRN ×3 (01:34→14:07)
[2020-02-25 05:46] LABS: BASOPHILS % (AUTO) 0.6 %; EOSINOPHILS # (AUTO) 0.2 10^3/uL (0.0-0.7); EOSINOPHILS % (AUTO) 3.3 %; HGB - HEMOGLOBIN 11.7 g/dL (12.0-16.0); LYMPHOCYTES # (AUTO) 1.6 10^3/uL (1.5-3.5); LYMPHOCYTES % (AUTO) 33.5 %; MEAN CORPUSCULAR HEMOGLOBIN 30.5 pg (27.0-31.0); MEAN CORPUSCULAR HGB CONC 33.6 g/dL (32.0-36.0); MEAN CORPUSCULAR VOLUME 90.9 fL (81.0-99.0); MEAN PLATELET VOLUME 11.5 fL (7.9-10.8); MONOCYTES # (AUTO) 0.4 10^3/uL (0.0-1.0); NEUTROPHILS # (AUTO) 2.6 10^3/uL (1.5-6.6); NEUTROPHILS % (AUTO) 53.4 %; PLT - PLATELET COUNT 180 10^3/uL (130-450); RED BLOOD COUNT 3.83 10^6/uL (4.20-5.40); RED CELL DISTRIBUTION WIDTH 12.5 % (12.0-15.0); WHITE BLOOD COUNT 4.9 x10^3/uL (4.8-10.8)
[2020-02-25] MEDS: busPIRone 5 MG TABLET PO SCH ×2 (06:11→14:07)
[2020-02-25 07:44] LABS: CREATININE,URINE 187.5 mg/dL; PROTEIN/CREATININE RATIO,URINE 0.1 (<=0.2)
[2020-02-25] MEDS: ARIPiprazole 5 MG TABLET PO SCH (08:43)
[2020-02-25] MEDS: LABETALOL 100 MG TABLET PO SCH (08:44)
[2020-02-25] MEDS: levETIRAcetam 250 MG TABLET PO SCH (08:44)
[2020-02-25] MEDS: DOCUSATE SODIUM 100 MG CAPSULE PO SCH (08:45)
[2020-02-25] MEDS ORDERED: busPIRone 5 MG TABLET PO SCH (09:00)
--- NOTE | 2020-02-25 09:09 | PROVIDER PROGRESS NOTE ---
Subjective - Prog Note Date Prog Note Date: 02/25/20 Prog Note Time: 09:07 - Subjective Pt reports feeling: Improved (minimal GONSALEZ, releived with tylenol. breast feeding. Pt has arrangements for place to stay today.) Objective - Vital Signs/Intake & Output Reviewed Vital Signs: Yes Vital Signs: Vital Signs x48h Temp Pulse Resp BP Pulse Ox 02/25/20 08:00 36.7 C 66 16 141/86 H 99 02/25/20 06:09 102/59 L 02/25/20 06:00 66 16 99/57 L 97 02/25/20 04:00 36.8 C 71 16 100/60 98 02/25/20 03:00 68 16 107/56 L 98 02/25/20 01:25 65 18 106/64 - Objective General Appearance: positive: No acute distress, Alert Respiratory: positive: Chest non-tender, No respiratory distress, Breath sounds nml Cardiovascular: positive: Regular rate & rhythm, No murmur, No gallop Abdomen: positive: Non-tender, Nml bowel sounds, No distention Reflexes: Knee (R): 1+, Knee (L): 1+ - Lab Results Fish Bones: 02/25/20 05:24 Other Labs: Lab Results x24hrs 02/25/20 02/25/20 02/25/20 Range/Units 07:00 05:24 05:24 WBC 4.9 (4.8-10.8) x10^3/uL RBC 3.83 L (4.20-5.40) 10^6/uL Hgb 11.7 L (12.0-16.0) g/dL Hct 34.8 L (37.0-47.0) % MCV 90.9 (81.0-99.0) fL MCH 30.5 (27.0-31.0) pg MCHC 33.6 (32.0-36.0) g/dL RDW 12.5 (12.0-15.0) % Plt Count 180 (130-450) 10^3/uL MPV 11.5 H (7.9-10.8) fL Neut # (Auto) 2.6 (1.5-6.6) 10^3/uL Lymph # (Auto) 1.6 (1.5-3.5) 10^3/uL [place] # (Auto) 0.4 (0.0-1.0) 10^3/uL Eos # (Auto) 0.2 (0.0-0.7) 10^3/uL Baso # (Auto) 0.0 (0.0-0.1) 10^3/uL Absolute Nucleated RBC 0.00 x10^3/uL Nucleated RBC % 0.0 /100WBC Uric Acid (2.6-7.2) mg/dL Total Bilirubin (0.2-1.0) mg/dL Direct Bilirubin (0.1-0.5) mg/dL AST 23 (10-42) IU/L ALT (10-60) IU/L Alkaline Phosphatase (42-121) IU/L Lactate Dehydrogenase (91-225) IU/L Total Protein (6.7-8.2) g/dL Albumin (3.2-5.5) g/dL Globulin (2.1-4.2) g/dL Urine Creatinine 187.5 mg/dL Ur Total Protein Timed 18 mg/dL Protein/Creatinin Ratio 0.1 (<=0.2) 02/25/20 02/25/20 02/24/20 Range/Units 05:24 05:24 11:15 WBC (4.8-10.8) x10^3/uL RBC (4.20-5.40) 10^6/uL Hgb (12.0-16.0) g/dL Hct (37.0-47.0) % MCV (81.0-99.0) fL MCH (27.0-31.0) pg MCHC (32.0-36.0) g/dL RDW (12.0-15.0) % Plt Count (130-450) 10^3/uL MPV (7.9-10.8) fL Neut # (Auto) (1.5-6.6) 10^3/uL Lymph # (Auto) (1.5-3.5) 10^3/uL [place] # (Auto) (0.0-1.0) 10^3/uL Eos # (Auto) (0.0-0.7) 10^3/uL Baso # (Auto) (0.0-0.1) 10^3/uL Absolute Nucleated RBC x10^3/uL Nucleated RBC % /100WBC Uric Acid 7.8 H (2.6-7.2) mg/dL Total Bilirubin (0.2-1.0) mg/dL Direct Bilirubin (0.1-0.5) mg/dL AST (10-42) IU/L ALT (10-60) IU/L Alkaline Phosphatase (42-121) IU/L Lactate Dehydrogenase 142 (91-225) IU/L Total Protein (6.7-8.2) g/dL Albumin (3.2-5.5) g/dL Globulin (2.1-4.2) g/dL Urine Creatinine 124.6 mg/dL Ur Total Protein Timed 35 mg/dL Protein/Creatinin Ratio 0.3 H (<=0.2) 02/24/20 02/24/20 02/24/20 Range/Units 11:07 11:07 11:07 WBC 6.4 (4.8-10.8) x10^3/uL RBC 4.15 L (4.20-5.40) 10^6/uL Hgb 13.1 (12.0-16.0) g/dL Hct 37.3 (37.0-47.0) % MCV 89.9 (81.0-99.0) fL MCH 31.6 H (27.0-31.0) pg MCHC 35.1 (32.0-36.0) g/dL RDW 12.5 (12.0-15.0) % Plt Count 175 (130-450) 10^3/uL MPV 10.9 H (7.9-10.8) fL Neut # (Auto) 4.7 (1.5-6.6) 10^3/uL Lymph # (Auto) 1.1 L (1.5-3.5) 10^3/uL [place] # (Auto) 0.3 (0.0-1.0) 10^3/uL Eos # (Auto) 0.2 (0.0-0.7) 10^3/uL Baso # (Auto) 0.0 (0.0-0.1) 10^3/uL Absolute Nucleated RBC 0.00 x10^3/uL Nucleated RBC % 0.0 /100WBC Uric Acid 7.5 H (2.6-7.2) mg/dL Total Bilirubin 0.4 (0.2-1.0) mg/dL Direct Bilirubin 0.1 (0.1-0.5) mg/dL AST 25 25 (10-42) IU/L ALT 23 (10-60) IU/L Alkaline Phosphatase 134 H (42-121) IU/L Lactate Dehydrogenase (91-225) IU/L Total Protein 6.9 (6.7-8.2) g/dL Albumin 3.1 L (3.2-5.5) g/dL Globulin 3.8 (2.1-4.2) g/dL Urine Creatinine mg/dL Ur Total Protein Timed mg/dL Protein/Creatinin Ratio (<=0.2) / Range/Units 11:07 WBC (4.8-10.8) x10^3/uL RBC (4.20-5.40) 10^6/uL Hgb (12.0-16.0) g/dL Hct (37.0-47.0) % MCV (81.0-99.0) fL MCH (27.0-31.0) pg MCHC (32.0-36.0) g/dL RDW (12.0-15.0) % Plt Count (130-450) 10^3/uL MPV (7.9-10.8) fL Neut # (Auto) (1.5-6.6) 10^3/uL Lymph # (Auto) (1.5-3.5) 10^3/uL [place] # (Auto) (0.0-1.0) 10^3/uL Eos # (Auto) (0.0-0.7) 10^3/uL Baso # (Auto) (0.0-0.1) 10^3/uL Absolute Nucleated RBC x10^3/uL Nucleated RBC % /100WBC Uric Acid (2.6-7.2) mg/dL Total Bilirubin (0.2-1.0) mg/dL Direct Bilirubin (0.1-0.5) mg/dL AST (10-42) IU/L ALT (10-60) IU/L Alkaline Phosphatase (42-121) IU/L Lactate Dehydrogenase 180 (91-225) IU/L Total Protein (6.7-8.2) g/dL Albumin (3.2-5.5) g/dL Globulin (2.1-4.2) g/dL Urine Creatinine mg/dL Ur Total Protein Timed mg/dL Protein/Creatinin Ratio (<=0.2) Assessment/Plan - Problem List (1) Pre-eclampsia Impression: P/C ratio 0.1 Plateletts improving. LFT normal. Uric acid slight rise. BP well controled. Anticipate discharge today. Qualifiers: Trimester: unspecified trimester Qualified Code(s): O14.90 - Unspecified pre-eclampsia, unspecified trimester
--- NOTE | 2020-02-25 13:44 | PROVIDER PROGRESS NOTE ---
Subjective - Prog Note Date Prog Note Date: 02/25/20 Prog Note Time: 13:41 - Subjective Pt reports feeling: Improved (head ach resolved. feeling well [facility]) Objective - Vital Signs/Intake & Output Reviewed Vital Signs: Yes Vital Signs: Vital Signs x48h Temp Pulse Resp BP Pulse Ox 02/25/20 12:23 37.3 C 66 16 134/80 H 99 02/25/20 09:54 131/77 H 02/25/20 08:00 36.7 C 66 16 141/86 H 99 02/25/20 06:09 102/59 L 02/25/20 06:00 66 16 99/57 L 97 - Objective General Appearance: positive: No acute distress, Alert Respiratory: positive: Chest non-tender, No respiratory distress, Breath sounds nml Cardiovascular: positive: Regular rate & rhythm, No murmur, No gallop Abdomen: positive: Non-tender, Nml bowel sounds Reflexes: Knee (R): 1+, Knee (L): 1+ - Lab Results Fish Bones: 02/25/20 05:24 Other Labs: Lab Results x24hrs 02/25/20 02/25/20 02/25/20 Range/Units 07:00 05:24 05:24 WBC 4.9 (4.8-10.8) x10^3/uL RBC 3.83 L (4.20-5.40) 10^6/uL Hgb 11.7 L (12.0-16.0) g/dL Hct 34.8 L (37.0-47.0) % MCV 90.9 (81.0-99.0) fL MCH 30.5 (27.0-31.0) pg MCHC 33.6 (32.0-36.0) g/dL RDW 12.5 (12.0-15.0) % Plt Count 180 (130-450) 10^3/uL MPV 11.5 H (7.9-10.8) fL Neut # (Auto) 2.6 (1.5-6.6) 10^3/uL Lymph # (Auto) 1.6 (1.5-3.5) 10^3/uL [place] # (Auto) 0.4 (0.0-1.0) 10^3/uL Eos # (Auto) 0.2 (0.0-0.7) 10^3/uL Baso # (Auto) 0.0 (0.0-0.1) 10^3/uL Absolute Nucleated RBC 0.00 x10^3/uL Nucleated RBC % 0.0 /100WBC Uric Acid (2.6-7.2) mg/dL AST 23 (10-42) IU/L Lactate Dehydrogenase (91-225) IU/L Urine Creatinine 187.5 mg/dL Ur Total Protein Timed 18 mg/dL Protein/Creatinin Ratio 0.1 (<=0.2) 02/25/20 02/25/20 Range/Units 05:24 05:24 WBC (4.8-10.8) x10^3/uL RBC (4.20-5.40) 10^6/uL Hgb (12.0-16.0) g/dL Hct (37.0-47.0) % MCV (81.0-99.0) fL MCH (27.0-31.0) pg MCHC (32.0-36.0) g/dL RDW (12.0-15.0) % Plt Count (130-450) 10^3/uL MPV (7.9-10.8) fL Neut # (Auto) (1.5-6.6) 10^3/uL Lymph # (Auto) (1.5-3.5) 10^3/uL [place] # (Auto) (0.0-1.0) 10^3/uL Eos # (Auto) (0.0-0.7) 10^3/uL Baso # (Auto) (0.0-0.1) 10^3/uL Absolute Nucleated RBC x10^3/uL Nucleated RBC % /100WBC Uric Acid 7.8 H (2.6-7.2) mg/dL AST (10-42) IU/L Lactate Dehydrogenase 142 (91-225) IU/L Urine Creatinine mg/dL Ur Total Protein Timed mg/dL Protein/Creatinin Ratio (<=0.2) Assessment/Plan - Problem List (1) Pre-eclampsia Impression: Late onset PreEclampsia. Proteneuria resolving normal liver and cbc Meds Add Labetolol 100 mg bid. RTC one week Qualifiers: Trimester: unspecified trimester Qualified Code(s): O14.90 - Unspecified pre-eclampsia, unspecified trimester
--- NOTE | 2020-02-25 13:48 | Discharge Plan ---
Discharge Plan Problem Reviewed?: Yes Disposition: Home, Self Care Condition: Good Diet: Regular Activity Restrictions: pelvic rest 6 weeks Shower Restrictions: No Driving Restrictions: No No Smoking: If you smoke, Please STOP! Call for help.
[2020-02-25 14:24] VITALS: BP 138/88
== END 2020-02-25 15:15 | disposition home or self-care (01) | DRG 776 ==
LOC: WFO 10:45 → FBP 10:49 → WFO 18:23 → FBP 18:23
PROVIDERS: ADMIT Obstetrics & Gynecology; ATTEND Obstetrics & Gynecology
DX: O11.5 Pre-existing hypertension with pre-eclampsia, complicating the puerperium (principal); O10.93 Unspecified pre-existing hypertension complicating the puerperium
CPT/HCPCS: 36415; 80076; 82570; 83615; 84156; 84450; 84550; 85025; 99214; A9270

== ENCOUNTER 2020-03-19 23:47 | Emergency (ER) | payer MEDICAID ==
--- NOTE | 2020-03-20 00:13 | ED Physician Documentation ---
PD HPI NECK PAIN - Stated complaint Stated Complaint: NECK PX/FALL - Chief complaint Chief Complaint: Heent - History obtained from History obtained from: Patient - History of Present Illness Timing - onset: How many days ago (2-3) Timing - duration: Days Timing - details: Abrupt onset Pain level now: 6 Location: Upper, Mid Quality: Pain Associated symptoms: No: Weakness, Numbness Improves with: Rest Worsened by: Movement, Palpation Similar symptoms before: Has not had sx before Recently seen: Not recently seen - Additional information Additional information: tripped and fell 2-3 days ago, fell to ground and had sudden onset of neck pain, posteriorly and midline and left of midline, upper neck. Pain is worse with movement as well as with PO intake Review of Systems Musculoskeletal: reports: Neck pain. 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 : None HEENT: None Psych: None Musculoskeletal: None Derm: None - Past Surgical History Past Surgical History: No - Present Medications Home Medications: Ambulatory Orders Medication Instructions Recorded Confirmed High Blood Pressure Meds 07/13/19 ARIPiprazole [Aripiprazole] BID 02/19/20 Buspirone HCl PO TID 02/19/20 Ferrous Gluconate [Iron] 324 mg PO 02/19/20 Folic Acid QDAC 02/19/20 Ondansetron [Ondansetron Odt] Q6HR PRN 02/19/20 Pnv No.121/Iron/Folic Acid DAILY 02/19/20 [ Multivitamin Tablet] buprenorphine HCL [Buprenorphine 02/19/20 HCl] buprenorphine HCL [Buprenorphine 2 mg SL BID 02/19/20 02/19/20 HCl] hydrOXYzine HCL [Hydroxyzine HCl] 1 - 2 tab PO PRN PRN 02/19/20 02/19/20 levETIRAcetam [Levetiracetam] 1.5 tab PO BID 02/19/20 02/19/20 - Allergies Allergies/Adverse Reactions: Allergies Allergy/AdvReac Type Severity Reaction Status Date / Time amoxicillin Allergy Itching Verified 03/19/20 23:54 - Social History Does the pt smoke?: Yes Smoking Status: Current every day smoker Does the pt drink ETOH?: No Does the pt have substance abuse?: Yes - Immunizations Immunizations are current?: Yes - POLST Patient has POLST: No PD ED PE NORMAL - Vitals Vital signs reviewed: Yes - General General: Alert and oriented X 3, No acute distress, Well developed/nourished - HEENT HEENT: Moist mucous membranes - Neck Neck: Supple, no meningeal sign, Other (upper cervical spine tenderness midline and left paracervical) - Neuro Neuro: Alert and oriented X 3, No motor deficit, No sensory deficit, Normal s peech Results - Vitals Vitals: Vital Signs - 24 hr 03/19/20 03/20/20 23:54 02:17 Temperature 37.1 C Heart Rate 100 81 Respiratory 16 18 Rate Blood Pressure 148/100 H 128/86 H O2 Saturation 94 99 Oxygen O2 Source Room air - Rads (name of study) CT cervical spine Radiology: Prelim report reviewed, See rad report PD MEDICAL DECISION MAKING - ED course Complexity details: reviewed results, re-evaluated patient, considered differential, d/w patient ED course: declines medication stronger than ibuprofen. Given ibuprofen and on reevaluation, after CT resulted, she reports adequate pain relief. Departure - Departure Disposition: 01 Home, Self Care Clinical Impression: Cervical strain Qualifiers: Encounter type: initial encounter Qualified Code(s): S16.1XXA - Strain of muscle, fascia and tendon at neck level, initial encounter Condition: Good Instructions: ED Sprain Strain Neck Comments: You can take ibuprofen 400mg by mouth every 4 hours or 600mg every 6 hours as needed for pain. Discharge Date/Time: 03/20/20 02:20
[2020-03-20] MEDS ORDERED: IBUPROFEN 600 MG TABLET PO STA (00:28)
[2020-03-20 02:18] VITALS: BP 128/86
--- NOTE | 2020-03-20 10:57 | CT Report ---
PROCEDURE: CERVICAL SPINE WO INDICATIONS: injury, midline cervical spine tenderness TECHNIQUE: Noncontrast 3 mm thick sections acquired from the skull base to the T4 level. Sagittal and coronal r eformats were then constructed. For radiation dose reduction, the following was used: automated exp osure control, adjustment of mA and/or kV according to patient size. COMPARISON: None. FINDINGS: Image quality: Excellent. Bones: No fractures or dislocations. Visualized superior ribs are intact. Soft tissues: Prevertebral soft tissues are normal in thickness. No paravertebral hematomas. No ap ical pneumothoraces. IMPRESSION: No fracture. Note: No significant discrepancy from the preliminary report. Reviewed by: Grey Gibbons MD on 03/20/2020 9:56 AM ABDIRAHMAN Approved by: Grey Gibbons MD on 03/20/2020 9:56 AM ABDIRAHMAN Station ID: [id number]
== END 2020-03-20 02:20 | disposition home or self-care (01) ==
LOC: ED 23:47
DX: S16.1XXA Strain of muscle, fascia and tendon at neck level, initial encounter (principal); W01.0XXA Fall on same level from slipping, tripping and stumbling without subsequent striking against object, initial encounter; I10 Essential (primary) hypertension; F17.200 Nicotine dependence, unspecified, uncomplicated
CPT/HCPCS: 72125; 99283; A9270

== ENCOUNTER 2020-04-19 16:33 | Emergency (ER) | payer MEDICAID | END 2020-04-19 17:16 | disposition left against medical advice (07) | LOC: ED 16:33 | DX: Z53.21 Procedure and treatment not carried out due to patient leaving prior to being seen by health care provider (principal) ==

== ENCOUNTER 2021-08-15 07:19 | Emergency (ER) | payer MEDICAID ==
[2021-08-15 07:30] VITALS: BP 150/100
--- NOTE | 2021-08-15 07:35 | ED Physician Documentation ---
PD HPI HEENT - Stated complaint Stated Complaint: MOUTH PX - Chief complaint Chief Complaint: Heent - History obtained from History obtained from: Patient - History of Present Illness Timing - onset: How many days ago (has had sores on parietal area right scalp initially, then to left side, some on nose/face and couple days of sore back of throat.) Timing - duration: Days (several days for nose/throat and week or so for scalp/face.) Timing - details: Gradual onset Location: Throat, Other (face and scalp) Associated symptoms: Congestion (feeling of some nasal congestion and pressure behind nose.). No: Fever, Swollen nodes, Headache Similar symptoms before: Has not had sx before Recently seen: Not recently seen Review of Systems Constitutional: denies: Fever, Chills Ears: denies: Ear pain Nose: reports: Congestion, Sinus pressure / pain Throat: reports: Oral lesions / sores (back of throat for couple days). 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 HEENT: Chronic vision loss Psych: Depression, Anxiety, Panic attacks Musculoskeletal: None Derm: None - Past Surgical History Past Surgical History: No HEENT: Tonsil/Adenoidectomy - Present Medications Home Medications: Ambulatory Orders Medication Instructions Recorded Confirmed Chlorhexidine Gluconate [Hibiclens] 15 ml TP DAILY #236 ml 08/15/21 Doxycycline Hyclate 100 mg PO BID 7 Days #14 cap 08/15/21 Mupirocin 2% Oint [Bactroban 2% 1 applic TOP TID #15 gm 08/15/21 Oint] - Allergies Allergies/Adverse Reactions: Allergies Allergy/AdvReac Type Severity Reaction Status Date / Time amoxicillin Allergy Anaphylaxis Verified 08/15/21 07:26 - Social History Does the pt smoke?: Yes Smoking Status: Current every day smoker Does the pt drink ETOH?: No Does the pt have substance abuse?: Yes - Immunizations Immunizations are current?: No Immunizations: Other immun not current - POLST Patient has POLST: No PD ED PE NORMAL - Vitals Vital signs reviewed: Yes - General General: Alert and oriented X 3, No acute distress, Well developed/nourished - HEENT HEENT: Pharynx benign (I don't see sores per se. Tonsils okay. ) - Neck Neck: Supple, no meningeal sign, No adenopathy - Cardiac Cardiac: RRR, No murmur - Respiratory Respiratory: Clear bilaterally - Derm Derm: Normal color, Warm and dry, Other (right and left parietal area with patch of superficial ulceration and weeping, and small patch side of nose and left cheek, c/w impetigo. ) - Neuro Neuro: Alert and oriented X 3, Normal speech Results - Vitals Vitals: Oxygen O2 Source Room air Departure - Departure Disposition: Home, Self Care Clinical Impression: Infection, face, Throat infection Condition: Stable Record reviewed to determine appropriate education?: Yes Instructions: ED Staph Infec Abx Tx Only Prescriptions: Mupirocin 2% Oint [Bactroban 2% Oint] 1 applic TOP TID #15 gm Doxycycline Hyclate 100 mg PO BID 7 Days #14 cap Chlorhexidine Gluconate [Hibiclens] 15 ml TP DAILY #236 ml Comments: This seems likely to be a staph infection. It can be on the skin such as your skin rash and can also be in the nasal passages and sinuses and therefore trickled on the throat. I would treat it with doxycycline antibiotic twice daily for a week. Also mupirocin antibiotic ointment on the main rash areas and also a small amount on a Q-tip in the nasal passages. That would be twice daily. Also use a antiseptic body wash head to toe just to have less germs on the surface to find new areas. Recheck if not improved well over the next several days and resolved by 3 to 5 days. Tylenol or ibuprofen if needed for pains. I transmitted your prescription to [facility] pharmacy. Discharge Date/Time: 08/15/21 08:08
[2021-08-15] MEDS: MUPIROCIN 2% OINT 1 GM TOP STA (08:03)
[2021-08-15] MEDS: DOXYCYCLINE 100 MG TABLET PO STA (08:03)
== END 2021-08-15 08:08 | disposition home or self-care (01) ==
LOC: ED 07:19
DX: L08.9 Local infection of the skin and subcutaneous tissue, unspecified (principal); J02.9 Acute pharyngitis, unspecified; F17.200 Nicotine dependence, unspecified, uncomplicated
CPT/HCPCS: 99283; A9270

== ENCOUNTER 2021-12-02 07:35 | Emergency (ER) | payer MEDICAID ==
[2021-12-02] MEDS ORDERED: CHERRY SYRUP 10 ML UDC PO ONE (09:58)
[2021-12-02] MEDS ORDERED: DEXAMETHASONE 10 MG/ML VIAL PO STA (09:58)
--- NOTE | 2021-12-02 10:01 | ED Physician Documentation ---
History of Present Illness - Stated complaint Stated Complaint: ABCESS - Chief complaint Chief Complaint: General - History obtained from History obtained from: Patient, Family - History of Present Illness Timing: Other (months) - Additonal information Additional information: 31-year-old female has been having a problem with a bacterial infection on her face scalp and neck as well as some cough congestion and vomiting. She feels like she has some drainage from the back of her throat and the corners. She has had the symptoms for weeks or months and she did come into the emergency department was treated with doxycycline mupirocin and chlorhexidine and at that time the patient had vomiting and abdominal pain associated with the doxycycline and she did not complete that course. She did have some improvement in her symptoms she has had worsening of her provement of her symptoms again over the past 2 weeks and she is in here today with scabs to her scalp, sores to her right ear pain around the right ear and sores to her face and neck. Review of Systems Constitutional: denies: Fever Eyes: denies: Decreased vision Ears: reports: Ear pain Nose: reports: Rhinorrhea / runny nose, Congestion Throat: reports: Sore throat Cardiac: denies: Chest pain / pressure, Palpitations Respiratory: reports: Cough. 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 HEENT: Chronic vision loss Psych: Depression, Anxiety, Panic attacks Musculoskeletal: None Derm: None - Past Surgical History Past Surgical History: No HEENT: Tonsil/Adenoidectomy - Present Medications Home Medications: Ambulatory Orders Medication Instructions Recorded Confirmed Chlorhexidine Gluconate [Hibiclens] 15 ml TP DAILY #236 ml 08/15/21 Doxycycline Hyclate 100 mg PO BID 7 Days #14 cap 08/15/21 Mupirocin 2% Oint [Bactroban 2% 1 applic TOP TID #15 gm 08/15/21 Oint] Azithromycin [Zithromax] 250 mg PO DAILY #6 tablet 12/02/21 Chlorhexidine Gluconate 30 ml TP BID #500 ml 12/02/21 [Antiseptic Skin Cleanser] Mupirocin 2% Oint [Bactroban 2% 1 applic TOP BID #50 gm 12/02/21 Oint] - Allergies Allergies/Adverse Reactions: Allergies Allergy/AdvReac Type Severity Reaction Status Date / Time amoxicillin Allergy Anaphylaxis Verified 12/02/21 07:55 - Social History Does the pt smoke?: Yes Smoking Status: Current every day smoker Does the pt drink ETOH?: No Does the pt have substance abuse?: Yes - Immunizations Immunizations are current?: No Immunizations: Other immun not current - POLST Patient has POLST: No PD ED PE NORMAL - Vitals Vital signs reviewed: Yes (Tachycardic and hypertensive) - General General: Alert and oriented X 3, No acute distress, Well developed/nourished - HEENT HEENT: Atraumatic, PERRL, EOMI, Pharynx benign, Other (Both TMs are erythematous with distortion of the landmarks there is tympanosclerosis present bilaterally the right is worse than the left there is no evidence of rupture. There is eschar on the scalp with surrounding erythema consistent with infection.) - Neck Neck: Supple, no meningeal sign, No bony TTP - Cardiac Cardiac: RRR, No murmur - Respiratory Respiratory: No respiratory distress, Clear bilaterally - Abdomen Abdomen: Soft, Non tender - Derm Derm: Normal color, Warm and dry, Other (To the skin there are multiple areas of erythema and induration with raised skin and and crusting. Consistent with impetigo. To the right nasal bridge, the scalp the right ear at the entrance to the canal and at the angle of the lips.) - Extremities Extremities: No deformity, No edema - Neuro Neuro: Alert and oriented X 3, head nurse 2-12 intact, No motor deficit, No sensory deficit, Normal speech Eye Opening: Spontaneous Motor: Obeys Commands Verbal: Oriented GCS Score: 15 - Psych Psych: Normal mood, Normal affect Results - Vitals Vitals: Vital Signs - 24 hr 12/02/21 07:51 Temperature 36.4 C L Heart Rate 102 H Respiratory 20 Rate Blood Pressure 146/110 H O2 Saturation 99 Oxygen O2 Source Room air PD MEDICAL DECISION MAKING - ED course Complexity details: reviewed old records, reviewed results, re-evaluated marisol bolanos, considered differential, d/w patient, d/w family ED course: 31-year-old female with a pyoderma and infection that looks like impetigo to her scalp and face also has otitis on exam and has symptoms consistent with this with coughing and coughing paroxysms hard enough to cause vomiting. She was able to complete a course of antibiotic and her prior visit secondary to vomiting associated with the antibiotic itself. Today she is asking if we can switch to a erythromycin based compound. We have treated the otitis with dexamethasone and we will place her on a course of azithromycin we will continue with mupirocin and I have described to the patient the need to wash her body with chlorhexidine including the scalp. Departure - Departure Disposition: 01 Home, Self Care Clinical Impression: Impetigo Otitis media Qualifiers: Otitis media type: suppurative Chronicity: acute Laterality: bilateral Recurrence: not specified as recurrent Spontaneous tympanic membrane rupture: without spontaneous rupture Qualified Code(s): H66.003 - Acute suppurative otitis media without spontaneous rupture of ear drum, bilateral Condition: Stable Instructions: ED Otitis Media Acute Adult, Impetigo Follow-Up: [facility] [place] [Provider Group] Prescriptions: Chlorhexidine Gluconate [Antiseptic Skin Cleanser] 30 ml TP BID #500 ml Mupirocin 2% Oint [Bactroban 2% Oint] 1 applic TOP BID #50 gm Azithromycin [Zithromax] 250 mg PO DAILY #6 tablet Comments: Herlinda, today it looks like you have an infection in your skin and this should be treated with the topical mupirocin ointment twice per day to the areas affected and to prevent further recurrence cleansing the skin with chlorhexidine daily. Is recommended you apply this and showered off. Apply it even to the scalp. In addition there appears to be middle ear infection in both middle ears and we have prescribed some azithromycin for this. Your medications have been E scribed to [facility] in [place]. I have given you a follow-up clinic in [place] as well.
[2021-12-02 10:16] VITALS: BP 157/107
== END 2021-12-02 10:17 | disposition home or self-care (01) ==
LOC: ED 07:35
DX: L01.00 Impetigo, unspecified (principal); H66.003 Acute suppurative otitis media without spontaneous rupture of ear drum, bilateral; F17.200 Nicotine dependence, unspecified, uncomplicated
CPT/HCPCS: 99283; 99284; A9270

== ENCOUNTER 2022-04-20 04:55 | Outpatient (CLI) | payer MEDICAID | END 2022-04-20 04:56 | disposition short-term general hospital (02) | LOC: EMS 04:55 | DX: R51.9 Headache, unspecified (principal); H53.149 Visual discomfort, unspecified; R11.0 Nausea | CPT/HCPCS: A0425; A0427; A0999 ==

== ENCOUNTER 2023-06-28 11:04 | Emergency (ER) | payer MEDICAID ==
[2023-06-28 11:13] VITALS: BP 177/132; O2SAT 97
[2023-06-28] MEDS ORDERED: LABETALOL 100 MG TABLET PO STA (11:27)
== END 2023-06-28 11:50 | disposition left against medical advice (07) ==
LOC: ED 11:04
DX: Z53.21 Procedure and treatment not carried out due to patient leaving prior to being seen by health care provider (principal)

== ENCOUNTER 2023-11-18 07:59 | Emergency (ER) | payer MEDICAID ==
[2023-11-18 08:57] LABS: BASOPHILS % (AUTO) 0.4 %; HCT - HEMATOCRIT 43.1 % (37.0-47.0); LYMPHOCYTES % (AUTO) 2.9 %; MEAN CORPUSCULAR HEMOGLOBIN 27.3 pg (27.0-31.0); MEAN CORPUSCULAR HGB CONC 32.5 g/dL (32.0-36.0); MEAN PLATELET VOLUME 10.5 fL (7.9-10.8); MONOCYTES % (AUTO) 1.8 %; PLT - PLATELET COUNT 213 10^3/uL (130-450); RED BLOOD COUNT 5.13 10^6/uL (4.20-5.40); RED CELL DISTRIBUTION WIDTH 14.1 % (12.0-15.0); WHITE BLOOD COUNT 34.7 x10^3/uL (4.8-10.8)
[2023-11-18] MEDS: SODIUM CHLORIDE 0.9% 1,000 ML IV STA (08:57)
[2023-11-18] MEDS: KETOROLAC 30 MG/ML VIAL IVP STA (08:57)
[2023-11-18 09:04] LABS: ABNORMAL LYMPHS % (MANUAL) 0 %
--- NOTE | 2023-11-18 09:05 | XRAY Report ---
PROCEDURE: Chest 1V INDICATIONS: L sided CP/SOA/cough TECHNIQUE: One view of the chest was acquired. COMPARISON: None. FINDINGS: Surgical changes and devices: None. Lungs and pleura: No pleural effusions or pneumothorax. Focal pneumonia, right lung base. Mediastinum: Mediastinal contours appear normal. Heart size is normal. Bones and chest wall: No suspicious bony lesions. Overlying soft tissues appear unremarkable. IMPRESSION: Focal right basilar pneumonia. Progress films are recommended until clear. Reviewed by: Hal Howard MD on 11/18/2023 9:04 AM PDT Approved by: Hal Howard MD on 11/18/2023 9:04 AM PDT Station ID: [id number]
[2023-11-18 09:14] LABS: ALBUMIN 3.4 g/dL (3.2-5.5); ALBUMIN/GLOBULIN RATIO 0.8 (1.0-2.2); CALCIUM 9.4 mg/dL (8.5-10.3); CREATININE 0.8 mg/dL (0.6-1.3); POTASSIUM 3.5 mmol/L (3.5-4.5); TOTAL PROTEIN 7.8 g/dL (6.4-8.9)
[2023-11-18 09:18] LABS: BILIRUBIN,URINE NEGATIVE (NEGATIVE); CLARITY,URINE CLEAR (CLEAR); GLUCOSE, URINE (UA) NEGATIVE (NEGATIVE); KETONES,URINE (UA) NEGATIVE (NEGATIVE); LEUKOCYTE ESTERASE, URINE NEGATIVE (NEGATIVE); NITRITE,URINE NEGATIVE (NEGATIVE); OCCULT BLOOD,URINE SMALL (NEGATIVE); PH,URINE 7.5 PH (5.0-7.5); PROTEIN,URINE TRACE mg/dL (NEGATIVE); UROBILINOGEN,URINE 2 E.U./dL (NORMAL)
[2023-11-18 09:21] LABS: HCG UR QUAL NEGATIVE
[2023-11-18 09:38] LABS: BAND NEUTROPHILS % (MANUAL) 10 %; LYMPHOCYTES # (MANUAL) 0.3 10^3/uL (1.5-3.5); LYMPHOCYTES % (MANUAL) 1 %; MONOCYTES # (MANUAL) 1.4 10^3/uL (0.0-1.0)
[2023-11-18 09:39] LABS: DIFFERENTIAL COMMENT MANUAL DIFFERENTIAL; PLATELET ESTIMATE, MANUAL NORMAL (130-450,000) (NORMAL); RBC MORPHOLOGY (MULTIPLE) 1+ ANISOCYTOSIS (NORMAL)
[2023-11-18 09:47] LABS: BACTERIA,URINE Few /HPF (None Seen); RBC,URINE 0-5 /HPF (0-5); SQUAMOUS EPITHELIAL CELL,UR FEW Squamous (<= Few); WBC,URINE 0-3 /HPF (0-5)
[2023-11-18] MEDS ORDERED: iohexoL-300 100 ML VIAL ONE (09:57)
[2023-11-18 10:00] LABS: B. PARAPERTUSSIS- RESP PCR PAN NOT DETECTED; B. PERTUSSIS- RESP PCR PANEL NOT DETECTED; C. PNEUMONIAE- RESP PCR PANEL NOT DETECTED; CORONAVIRUS 229E-RESP PCR NOT DETECTED; CORONAVIRUS HKU1-RESP PCR NOT DETECTED; CORONAVIRUS NL63-RESP PCR NOT DETECTED; CORONAVIRUS OC43-RESP PCR NOT DETECTED; HUMAN METAPNEUMOVIRUS NOT DETECTED; INFLUENZA A- RESP PCR PANEL NOT DETECTED; INFLUENZA B - RESP PCR PANEL NOT DETECTED; M. PNEUMONIAE- RESP PCR PANEL NOT DETECTED; PARAINFLUENZA VIRUS 1 NOT DETECTED; PARAINFLUENZA VIRUS 2 NOT DETECTED; PARAINFLUENZA VIRUS 3 DETECTED; PARAINFLUENZA VIRUS 4 NOT DETECTED; RHINOVIRUS/ENTEROVIRUS NOT DETECTED; RSV- RESP PCR PANEL NOT DETECTED; SARS-CoV-2 -RESP PCR PANEL NOT DETECTED
--- NOTE | 2023-11-18 10:34 | CT Report ---
PROCEDURE: Angio Chest INDICATIONS: SOA/CP/PE study CONTRAST: Omnipaque 300 80ml TECHNIQUE: After the administration of intravenous contrast, 2 mm axial images were acquired from the pulmonary apices to the posterior costophrenic angles during the arterial phase. In addition, 1 mm lung kernel and 5 mm soft tissue kernel reconstructions were performed. 3-dimensional coronal oblique maximum int ensity projection (MIP) reformats, 8 mm axial MIP, and 5 mm coronal and sagittal MPR reformats were t hen performed through the thorax. For radiation dose reduction, the following was used: automated exp osure control, adjustment of mA and/or kV according to patient size. COMPARISON: None. FINDINGS: Image quality: Excellent. Large vessels: No filling defects within the opacified pulmonary arteries, accounting for motion and contrast timing. No evidence of acute aortic syndrome or aortic aneurysm. Lungs and pleura: No consolidation. Relatively large dense right lower lobe pneumonia involving multi ple basilar segments. Minimal left basilar atelectasis. Mediastinum: Heart size is normal. No pericardial effusion. No large vessel abnormality. No mediastin al adenopathy by size criteria. Chest wall and lower neck: Thyroid is unremarkable. No axillary or supraclavicular adenopathy by size . Bones: No aggressive osseous abnormality. Upper Abdomen: Unremarkable. IMPRESSION: 1. No pulmonary embolus. 2. Dense pneumonia, right lower lobe. Progress films are recommended until clear.. Reviewed by: Hal Howard MD on 11/18/2023 10:33 AM PDT Approved by: Hal Howard MD on 11/18/2023 10:33 AM PDT Station ID: [id number]
--- NOTE | 2023-11-18 10:35 | ED Physician Documentation ---
History of Present Illness - Stated complaint Stated Complaint: RIB PX,SOA - Chief complaint Chief Complaint: General - History obtained from History obtained from: Patient - Additonal information Additional information: Patient is a 33-year-old female presenting for evaluation of bilateral rib pain worse on the left starting last night. She does report recently having cough, congestion and feeling warm. She denies any trauma to the area. She reports it hurts to take a deep breath. She was having trouble sleeping overnight. She has not tried anything for the pain. 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 Denies alcohol use. No abdominal symptoms. 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 HEENT: Chronic vision loss Psych: Depression, Anxiety, Panic attacks Musculoskeletal: None Derm: None - Past Surgical History Past Surgical History: No HEENT: Tonsil/Adenoidectomy - Present Medications Home Medications: Ambulatory Orders Medication Instructions Recorded Confirmed Azithromycin [Zithromax] 1 tab PO DAILY #4 tab 11/18/23 Cefpodoxime Proxetil [Vantin] 100 mg PO Q12H #14 tablet 11/18/23 amLODIPine [Norvasc] 5 mg PO DAILY #30 tablet 11/18/23 - Allergies Allergies/Adverse Reactions: Allergies Allergy/AdvReac Type Severity Reaction Status Date / Time amoxicillin Allergy Anaphylaxis Verified 11/18/23 08:17 doxycycline Allergy Unknown Verified 11/18/23 08:17 - Social History Does the pt smoke?: Yes Smoking Status: Current every day smoker Does the pt drink ETOH?: No Does the pt have substance abuse?: Yes - Immunizations Immunizations are current?: No Immunizations: Other immun not current - POLST Patient has POLST: No PD ED PE NORMAL - General General: Alert and oriented X 3, No acute distress, Well developed/nourished - HEENT HEENT: Atraumatic, Other (Scabbed lesions to face which patient states have been there for the last week) - Neck Neck: Supple, no meningeal sign - Cardiac Cardiac: Other (Tachycardic, regular rhythm; Diffuse chest wall tenderness bilaterally) - Respiratory Respiratory: No respiratory distress, Other (Coarse breath sounds right greater than left) - Abdomen Abdomen: Normal bowel sounds, Soft, Non tender, Non distended - Neuro Neuro: Alert and oriented X 3, Normal speech Results - Vitals Vitals: Vital Signs - 24 hr 11/18/23 11/18/23 11/18/23 08:11 08:28 09:33 Temperature 37.1 C Heart Rate 110 H 109 H 111 H Respiratory 23 20 34 H Rate Blood Pressure 160/112 H 160/116 H 153/120 H O2 Saturation 95 94 98 11/18/23 11/18/23 11/18/23 11:00 11:10 11:18 Temperature Heart Rate 108 H 103 H 91 Respiratory 26 H 26 H 24 Rate Blood Pressure 187/125 H 163/123 H 158/116 H O2 Saturation 97 98 96 11/18/23 12:41 Temperature 36.7 C Heart Rate 94 Respiratory 22 Rate Blood Pressure 143/108 H O2 Saturation 98 Oxygen O2 Source Room air - EKG (time done) 0859 EKG releavant findings:: EKG personally interpreted by author of this note. Relevant findings are: Rate 106, sinus tachycardia, no STEMI, QTc 431 - Labs Labs: Laboratory Tests 11/18/23 11/18/23 11/18/23 08:45 08:45 08:45 WBC 34.7 H RBC 5.13 Hgb 14.0 Hct 43.1 MCV 84.0 MCH 27.3 MCHC 32.5 RDW 14.1 Plt Count 213 MPV 10.5 Neut # (Auto) Not Reportable Lymph # (Auto) Not Reportable Jay # (Auto) Not Reportable Eos # (Auto) Not Reportable Baso # (Auto) Not Reportable Absolute Nucleated RBC Not Reportable Total Counted 100 Band Neuts % (Manual) 10 Abnorm Lymph % (Manual) 0 Nucleated RBC % Not Reportable Neutrophils # (Manual) 33.0 H Lymphocytes # (Manual) 0.3 L Monocytes # (Manual) 1.4 H Eosinophils # (Manual) 0.0 Basophils # (Manual) 0.0 Differential Comment MANUAL DIFFERENTIAL Platelet Estimate NORMAL (130-450,000) RBC Morph Micro Appear 1+ ANISOCYTOSIS D-Dimer 719.0 H Sodium 133 L Potassium 3.5 Chloride 96 L Carbon Dioxide 30 Anion Gap 7.0 BUN 17 Creatinine 0.8 Estimated GFR (MDRD) 100 Glucose 115 H Lactic Acid Calcium 9.4 Total Bilirubin 1.0 AST 19 ALT 17 Alkaline Phosphatase 67 Troponin I High Sens Total Protein 7.8 Albumin 3.4 Globulin 4.4 H Albumin/Globulin Ratio 0.8 L Lipase 17 Urine Color Urine Clarity Urine pH Ur Specific [place] Urine Protein Urine Glucose (UA) Urine Ketones Urine Occult Blood Urine Nitrite Urine Bilirubin Urine Urobilinogen Ur Leukocyte Esterase Urine RBC Urine WBC Ur Squamous Epith Cells Urine Bacteria Ur Microscopic Review Urine Culture Comments Urine HCG, Qual Nasal Adenovirus (PCR) Nasal B. parapertussis DNA (PCR) Nasal Coronavir 229E PCR Nasal Coronavir HKU1 PCR Nasal Coronavir NL63 PCR Nasal Coronavir OC43 PCR Nasal Enterovir/Rhinovir PCR Nasal Influenza B PCR Nasal Influenza A PCR Nasal Parainfluen 1 PCR Nasal Parainfluen 2 PCR Nasal Parainfluen 3 PCR Nasal Parainfluen 4 PCR Nasal RSV (PCR) Nasal B.pertussis DNA PCR Nasal C.pneumoniae (PCR) Nadeem Human Metapneumo PCR Nasal M.pneumoniae (PCR) Nasal SARS-CoV-2 (PCR) 11/18/23 11/18/23 11/18/23 08:45 08:55 08:57 WBC RBC Hgb Hct MCV MCH MCHC RDW Plt Count MPV Neut # (Auto) Lymph # (Auto) Jay # (Auto) Eos # (Auto) Baso # (Auto) Absolute Nucleated RBC Total Counted Band Neuts % (Manual) Abnorm Lymph % (Manual) Nucleated RBC % Neutrophils # (Manual) Lymphocytes # (Manual) Monocytes # (Manual) Eosinophils # (Manual) Basophils # (Manual) Differential Comment Platelet Estimate RBC Morph Micro Appear D-Dimer Sodium Potassium Chloride Carbon Dioxide Anion Gap BUN Creatinine Estimated GFR (MDRD) Glucose Lactic Acid Calcium Total Bilirubin AST ALT Alkaline Phosphatase Troponin I High Sens 4.2 Total Protein Albumin Globulin Albumin/Globulin Ratio Lipase Urine Color YELLOW Urine Clarity CLEAR Urine pH 7.5 Ur Specific [place] 1.010 Urine Protein TRACE Urine Glucose (UA) NEGATIVE Urine Ketones NEGATIVE Urine Occult Blood SMALL H Urine Nitrite NEGATIVE Urine Bilirubin NEGATIVE Urine Urobilinogen 2 H Ur Leukocyte Esterase NEGATIVE Urine RBC 0-5 Urine WBC 0-3 Ur Squamous Epith Cells FEW Squamous Urine Bacteria Few Ur Microscopic Review INDICATED Urine Culture Comments NOT INDICATED Urine HCG, Qual NEGATIVE Nasal Adenovirus (PCR) NOT DETECTED Nasal B. parapertussis DNA (PCR) NOT DETECTED Nasal Coronavir 229E PCR NOT DETECTED Nasal Coronavir HKU1 PCR NOT DETECTED Nasal Coronavir NL63 PCR NOT DETECTED Nasal Coronavir OC43 PCR NOT DETECTED Nasal Enterovir/Rhinovir PCR NOT DETECTED Nasal Influenza B PCR NOT DETECTED Nasal Influenza A PCR NOT DETECTED Nasal Parainfluen 1 PCR NOT DETECTED Nasal Parainfluen 2 PCR NOT DETECTED Nasal Parainfluen 3 PCR DETECTED A Nasal Parainfluen 4 PCR NOT DETECTED Nasal RSV (PCR) NOT DETECTED Nasal B.pertussis DNA PCR NOT DETECTED Nasal C.pneumoniae (PCR) NOT DETECTED Nadeem Human Metapneumo PCR NOT DETECTED Nasal M.pneumoniae (PCR) NOT DETECTED Nasal SARS-CoV-2 (PCR) NOT DETECTED 11/18/23 09:40 WBC RBC Hgb Hct MCV MCH MCHC RDW Plt Count MPV Neut # (Auto) Lymph # (Auto) Jay # (Auto) Eos # (Auto) Baso # (Auto) Absolute Nucleated RBC Total Counted Band Neuts % (Manual) Abnorm Lymph % (Manual) Nucleated RBC % Neutrophils # (Manual) Lymphocytes # (Manual) Monocytes # (Manual) Eosinophils # (Manual) Basophils # (Manual) Differential Comment Platelet Estimate RBC Morph Micro Appear D-Dimer Sodium Potassium Chloride Carbon Dioxide Anion Gap BUN Creatinine Estimated GFR (MDRD) Glucose Lactic Acid 1.3 Calcium Total Bilirubin AST ALT Alkaline Phosphatase Troponin I High Sens Total Protein Albumin Globulin Albumin/Globulin Ratio Lipase Urine Color Urine Clarity Urine pH Ur Specific [place] Urine Protein Urine Glucose (UA) Urine Ketones Urine Occult Blood Urine Nitrite Urine Bilirubin Urine Urobilinogen Ur Leukocyte Esterase Urine RBC Urine WBC Ur Squamous Epith Cells Urine Bacteria Ur Microscopic Review Urine Culture Comments Urine HCG, Qual Nasal Adenovirus (PCR) Nasal B. parapertussis DNA (PCR) Nasal Coronavir 229E PCR Nasal Coronavir HKU1 PCR Nasal Coronavir NL63 PCR Nasal Coronavir OC43 PCR Nasal Enterovir/Rhinovir PCR Nasal Influenza B PCR Nasal Influenza A PCR Nasal Parainfluen 1 PCR Nasal Parainfluen 2 PCR Nasal Parainfluen 3 PCR Nasal Parainfluen 4 PCR Nasal RSV (PCR) Nasal B.pertussis DNA PCR Nasal C.pneumoniae (PCR) Nadeem Human Metapneumo PCR Nasal M.pneumoniae (PCR) Nasal SARS-CoV-2 (PCR) PD Medical Decision Making - ED course Complexity details: reviewed results, re-evaluated patient, d/w patient ED course: Patient is a 33-year-old female presenting for evaluation of bilateral chest pain, worse on the left, and feeling short of air. She is tachycardic. She does feel warm to the touch but temperature readings here within normal limits. She has recently had URI symptoms. CBC, chemistries, troponin, D-dimer, chest x-ray were obtained and reviewed. Respiratory swab also obtained. Labs are significant for elevated white count of 34,000, Abnormal D-dimer, respiratory swab positive for parainfluenza. Chest x-ray with right-sided infiltrate. CT scan of the chest angio was obtained to evaluate for pulmonary embolism. Negative for PE but she does have a dense consolidation in the right lobe consistent with pneumonia. Given history of drug use will treat with 2 antibiotics. She does have a penicillin allergy so was started on cefpodoxime and azithromycin. Her blood pressure also remained quite elevated throughout her visit here. Patient does states she has been told she has high blood pressure in the past but has been off of medication for a long time. Was given a small dose of metoprolol IV here with improvement in blood pressures As her diastolic was ranging around 125.Her symptoms do not suggest hypertensive emergency. Will also start on Norvasc. Patient counseled regarding treatment plan as well as need for close follow-up. Ambulatory at discharge and counseled on concerning symptoms to return for.Blood cultures obtained prior to discharge. Departure - Departure Disposition: 01 Home, Self Care Clinical Impression: Right lower lobe pneumonia, Leukocytosis, Hypertension Condition: Good Instructions: ED Hypertension Conf Out Of Control, ED Pneumonia Adult Prescriptions: amLODIPine [Norvasc] 5 mg PO DAILY #30 tablet Cefpodoxime Proxetil [Vantin] 100 mg PO Q12H #14 tablet Azithromycin [Zithromax] 1 tab PO DAILY #4 tab Comments: You have pneumonia and have also tested positive for a respiratory virus called parainfluenza. I sent her antibiotics to [facility] in [place]. Your blood pressure has also been quite elevated today and you did report that you used to be on blood pressure medication. I am starting you on a blood pressure medicine have also sent this prescription to [facility]. You would benefit from having a primary care provider and the list is included in your discharge papers. Return to the ER if you have worsening symptoms. Forms: PCP List Discharge Date/Time: 11/18/23 12:45
[2023-11-18] MEDS: iohexoL-300 100 ML VIAL IVP ONE (11:04)
[2023-11-18] MEDS: CEFPODOXIME PROXETIL 100 MG TABLET PO STA (11:13)
[2023-11-18] MEDS: METOPROLOL 5 MG/5 ML VIAL IVP STA (11:13)
[2023-11-18] MEDS: AZITHROMYCIN 250 MG TABLET PO STA (11:13)
[2023-11-18 12:47] VITALS: BP 143/108; O2SAT 98
== END 2023-11-18 12:45 | disposition home or self-care (01) ==
LOC: ED 07:59
DX: I10 Essential (primary) hypertension (principal); J45.909 Unspecified asthma, uncomplicated; F17.200 Nicotine dependence, unspecified, uncomplicated; J18.9 Pneumonia, unspecified organism; D72.829 Elevated white blood cell count, unspecified
CPT/HCPCS: 36415; 71045; 71275; 80053; 81001; 81025; 83605; 83690; 84484; 85025; 85379; 87040; 87633; 93005; 96361; 96374; 96375; 99284; A9270; Q9967; 81003; 87086